=== PATIENT | male | born 1960 ===

== ENCOUNTER 2017-06-05 20:44 | Inpatient (IN) | payer OTHER ==
--- NOTE | 2017-06-05 20:56 | ED PDOC ---
Arrival/HPI - General Time Seen by Provider: 06/05/17 20:47 Historian: Patient - History of Present Illness Narrative History of Present Illness (Text): 06/05/17 20:53 Alex Villegas is a 56 year old male smoker who presents to the Emergency department complaining of shortness of breath. Patient reports he has been experiencing minimally productive cough whitish sputum for the past 3 days and developed shortness of breath yesterday, which worsened tonight. Patient also reports occassional associated chest discomfort. Patient denies any leg pain, chills, nausea, vomiting, diarrhea, back pain, neck pain, headache, dizziness, or any other complaints. Time/Duration: < week (3 days) Symptom Onset: Gradual Symptom Course: Unchanged Activities at Onset: Light Context: Home Past Medical History - Provider Review Nursing Documentation Reviewed: Yes Family/Social History - Physician Review Nursing Documentation Reviewed: Yes Family/Social History: Unknown Family HX Allergies/Home Meds Allergies/Adverse Reactions: Allergies No Known Allergies Allergy (Unverified 06/05/17 20:56) Review of Systems - Physician Review All systems were reviewed & negative as marked: Yes - Review of Systems Constitutional: Fevers Eyes: Normal ENT: Normal Respiratory: SOB, Cough, Sputum Cardiovascular: Chest Pain Gastrointestinal: Normal. absent: Abdominal Pain, Diarrhea, Nausea, Vomiting Genitourinary Male: Normal. absent: Dysuria, Frequency, Hematuria, Urinary Output Changes Musculoskeletal: Normal. absent: Back Pain, Neck Pain Skin: Normal. absent: Rash Neurological: Normal. absent: Headache, Dizziness Endocrine: Normal Hemo/Lymphatic: Normal Psychiatric: Normal Physical Exam Vital Signs Reviewed: Yes Vital Signs Temp Pulse Resp BP Pulse Ox 06/06/17 01:29 91 H 18 177/113 H 99 06/05/17 23:42 90 18 169/120 H 96 06/05/17 22:14 109 H 216/151 H 06/05/17 22:09 102 H 19 208/152 H 100 06/05/17 21:27 113 H 208/140 H 06/05/17 20:44 97.6 F 113 H 19 208/140 H 95 Temperature: Afebrile Blood Pressure: Hypertensive Pulse: Tachycardic Respiratory Rate: Normal Appearance: Positive for: Well-Appearing, Non-Toxic, Comfortable Pain Distress: None Mental Status: Positive for: Alert and Oriented X 3 - Systems Exam Head: Present: Atraumatic, Normocephalic Pupils: Present: PERRL Extroacular Muscles: Present: EOMI Conjunctiva: Present: Normal Mouth: Present: Moist Mucous Membranes Neck: Present: Normal Range of Motion Respiratory/Chest: Present: Clear to Auscultation, Good Air Exchange. No: Respiratory Distress, Accessory Muscle Use Cardiovascular: Present: Regular Rate and Rhythm, Normal S1, S2, Tachycardic. No: Murmurs Abdomen: Present: Normal Bowel Sounds. No: Tenderness, Distention, Peritoneal Signs Back: Present: Normal Inspection Upper Extremity: Present: Normal Inspection. No: Cyanosis, Edema Lower Extremity: Present: Normal Inspection. No: Edema Neurological: Present: GCS=15, CN II-XII Intact, Speech Normal Skin: Present: Warm, Dry, Normal Color. No: Rashes Psychiatric: Present: Alert, Oriented x 3, Normal Insight, Normal Concentration Medical Decision Making ED Course and Treatment: 06/05/17 20:53 Impression: 56 year old male complaining of productive cough with sputum, shortness of breath, chest discomfort. Plan: -- EKG -- Chest X-ray -- Labs, cardiac enzymes, BNP, D-dimer -- Catapres -- Reassess and disposition Progress Notes: Reviewed EKG, sinus tachycardia at 112 bpm. LAD. LVH. 06/05/17 22:18 Chest X-ray reviewed, shows no acute processes. 06/05/17 23:54 CTA Chest shows: LIMITATIONS: Mild to moderate respiratory motion artifact. PULMONARY ARTERIES: Nonocclusive filling defect in the right lower lobe pulmonary artery, images 112-116 of series 2. Occlusive filling defects in multiple segmental and subsegmental branches of the right lower lobe pulmonary artery, compatible with acute pulmonary emboli, images 148-165 of series 2. Main pulmonary artery segment is enlarged, suggestive of pulmonary hypertension. No evidence of clot in the large large central pulmonary arteries. AORTA: Exam is nondiagnostic for the detection of aortic dissection because of suboptimal enhancement of the aorta. LUNGS: Findings suspicious for mild pulmonary vascular congestion. There is mild , smooth interlobular septal thickening in the lungs bilaterally, mainly at the lung periphery. No evidence of significant focal consolidation/infiltrate in the lungs PLEURAL SPACE: Bilateral pleural effusions, small to moderate in size, symmetric in appearance. HEART: Heart appears moderately to markedly enlarged. BONES/JOINTS: No acute bony abnormality identified. SOFT TISSUES: No acute abnormality of the visualized soft tissues seen. LYMPH NODES: No evidence of diffuse lymphadenopathy. PANCREAS: Mild stranding of the fat adjacent to the pancreatic tail. Small amount of nearby fluid in the left retroperitoneal space. Findings are suspicious for mild acute pancreatitis, involving the pancreatic tail. No peripancreatic fluid collections seen. ADRENALS: 2.3 cm left adrenal lesion. This has features suggestive of a benign lesion, but it is indeterminate on this exam. Recommend follow-up abdominal CT or MR in 12 months. Alternatively, if there is a history of malignancy, consider further evaluation with PET, unenhanced abdominal CT or MR. KIDNEYS AND URETERS: Low density lesion in the left kidney, most likely a cyst, measuring 3.8 cm. Nonobstructing left renal stone. INTRAPERITONEAL SPACE: Small amount of abdominal free fluid. IMPRESSION: - RIGHT LOWER LOBE PULMONARY EMBOLI, PRIMARILY INVOLVING MULTIPLE SEGMENTAL AND SUBSEGMENTAL BRANCHES. - Findings suspicious for mild acute pancreatitis, involving the pancreatic tail. Recommend correlation with pancreatic enzyme values. - Bilateral pleural effusions and findings suspicious for mild pulmonary vascular congestion. - Small amount of abdominal free fluid. - Cardiomegaly. - Incidental adrenal lesion. See recommendations above. - See above for remaining findings. Heparin bolus and drip ordered. 06/05/17 23:[address] Bartlett, typist, who is aware and agrees to evaluate pt. residential construction instructor notified. 06/06/17 00:08 Case discussed with medical sales associate almond pan finisher, who is aware and agrees with plan. 06/06/17 00:[address] Rojas, who is aware and agrees with plan. Accepts pt in to her service. Pt will be admitted to ICU for pulmonary emboli. Requests consults with Dr. Blair and Dr. Gomez. 06/06/17 00:25 - Critical Care Critical Care Minutes: 30 minutes - Lab Interpretations Lab Results: 06/05/17 21:00 06/05/17 21:00 Lab Results 06/05/17 21:00: WBC 12.8 H, RBC 4.81, Hgb 14.1, Hct 41.2 L, MCV 85.7, MCH 29.3, MCHC 34.2, RDW 14.9 H, Plt Count 260, MPV 10.0 06/05/17 21:00: Sodium 140, Potassium 3.7, Chloride 102, Carbon Dioxide 22, Anion Gap 20, BUN 19, Creatinine 1.3, Est GFR ( Amer) > 60, Est GFR (Non- Af Amer) 57, Random Glucose 220 H, Calcium 10.4, Total Bilirubin 1.6 H, AST 57, ALT 90 H, Alkaline Phosphatase 97, Lactate Dehydrogenase 559, Total Creatine Kinase 179, Troponin I 0.07, Total Protein 7.3, Albumin 4.2, Globulin 3.1, Albumin/Globulin Ratio 1.3 06/05/17 21:00: PT 14.3 H, INR 1.25 H, APTT 25.7, D-Dimer, Quantitative 248 H I have reviewed the lab results: Yes - RAD Interpretation Radiology Orders: 06/05/17 21:13 CHEST PORTABLE [RAD] Stat 06/05/17 22:19 ANGIO CHEST PE PROTOCOL [CT] Stat Mold Maker Plastic Molds: ED Physician, Radiologist - EKG Interpretation Interpreted by ED Physician: Yes Type: 12 lead EKG - Medication Orders Current Medication Orders: Clonidine HCl (Catapres) 0.1 mg PO TID PRN PRN Reason: Systolic Blood Pressure Heparin Sodium/Sodium Chloride (Heparin 82830 Units/250ml 1/2 Normal Saline) 25 ,000 units in 250 mls @ 16.035 mls/hr IV .[id number] PRN; Protocol; 18 UNITS/KG/HR PRN Reason: ADJUST RATE PER PROTOCOL Last Admin: 06/06/17 00:39 Dose: 18 units/kg/hr, 16.035 mls/hr eMAR Start Stop Document 06/06/17 00:39 RD (Rec: 06/06/17 00:39 RD [id number]) Intravenous Solution Start Date 06/06/17 Start Time 00:39 Titration Intervention Document 06/06/17 00:39 RD (Rec: 06/06/17 00:39 RD [id number]) Titration Intake Waste Amount 0 Container Volume 250 Titration Dosing Titration Dose 18 IV Rate 16.035 Intake/Decrease Started Pantoprazole Sodium (Protonix Ec Tab) 40 mg PO 0600 DERRICK Discontinued Medications Clonidine HCl (Catapres) 0.2 mg PO STAT STA Stop: 06/05/17 21:14 Last Admin: 06/05/17 21:27 Dose: 0.2 mg MAR Pulse and Blood Pressure Document 06/05/17 21:27 RD (Rec: 06/05/17 21:27 RD [id number]) Pulse Pulse Rate (60-90 beats/min) 113 Blood Pressure Blood Pressure (100/60-150/90 mm Hg) 208/140 Heparin Sodium (Porcine) (Heparin) 6,880 units IV ONCE STA PRN Reason: Protocol Stop: 06/06/17 00:10 Last Admin: 06/06/17 00:19 Dose: 6,880 units eMAR Start Stop Document 06/06/17 00:19 RD (Rec: 06/06/17 00:21 RD [id number]) Intravenous Solution Start Date 06/06/17 Start Time 00:19 End Date 06/06/17 End time 00:21 Total Infusion Time 2 Metoprolol Tartrate (Lopressor) 5 mg IVP STAT STA Stop: 06/05/17 22:10 Last Admin: 06/05/17 22:14 Dose: 5 mg IVP Administration Document 06/05/17 22:14 RD (Rec: 06/05/17 22:14 RD [id number]) Charges for Administration # of IVP Administrations 1 MAR Pulse and Blood Pressure Document 06/05/17 22:14 RD (Rec: 06/05/17 22:14 RD [id number]) Pulse Pulse Rate (60-90 beats/min) 109 Blood Pressure Blood Pressure (100/60-150/90 mm Hg) 216/151 - Scribe Statement The provider has reviewed the documentation as recorded by the Veronicaibsoniya [place] All medical record entries made by the Veronicaibsoniya were at my direction and personally dictated by me. I have reviewed the chart and agree that the record accurately reflects my personal performance of the history, physical exam, medical decision making, and the department course for this patient. I have also personally directed, reviewed, and agree with the discharge instructions and disposition. Disposition/Present on Arrival - Present on Arrival Any Indicators Present on Arrival: No History of DVT/PE: No History of Uncontrolled Diabetes: No Urinary Catheter: No History of Decub. Ulcer: No History Surgical Site Infection Following: None - Disposition Have Diagnosis and Disposition been Completed?: Yes Diagnosis: Pulmonary emboli Disposition: HOSPITALIZED Disposition Time: 00:10 Patient Plan: Admission Patient Problems: Current Active Problems Problem Status Onset Pulmonary emboli Acute Condition: GUARDED
[2017-06-05 21:27] LABS: HEMOGLOBIN 14.1 g/dL (14.0-18.0); MEAN CELL VOLUME 85.7 fl (80.0-105.0); MEAN CORPUSCULAR HEMOGLOBIN 29.3 pg (25.0-35.0); MEAN CORPUSCULAR HGB CONC 34.2 g/dl (31.0-37.0); RBC 4.81 10^6/uL (3.5-6.1); RED CELL DISTRIBUTION WIDTH 14.9 % (11.5-14.5); WHITE BLOOD COUNT 12.8 10^3/ul (4.5-11.0)
[2017-06-05 21:36] LABS: ALB/GLOB RATIO 1.3 (1.1-1.8); ALBUMIN 4.2 g/dL (3.0-4.8); ALT/SGPT 90 U/L (7-56); AST/SGOT 57 U/L (17-59); BLOOD UREA NITROGEN 19 mg/dL (7-21); CALCIUM 10.4 mg/dL (8.4-10.5); GFR AFRICAN-AMERICAN > 60; GFR NON-AFRICAN AMERICAN 57
[2017-06-05 21:47] LABS: TROPONIN I 0.07 ng/mL
[2017-06-05 22:04] LABS: INR 1.25 (0.93-1.08); PROTHROMBIN TIME 14.3 SECONDS (9.4-12.5)
[2017-06-05 22:05] LABS: PARTIAL THROMBOPLASTIN TIME 25.7 Seconds (25.1-36.5)
[2017-06-05] MEDS ORDERED: Metoprolol 1 mg/ml Inj IVP STA (22:09)
[2017-06-05] MEDS ORDERED: Iohexol 350 MG/100 ML VIAL ONE (22:22)
--- NOTE | 2017-06-05 23:52 | CT ---
EXAM: CT Angiography Chest With Intravenous Contrast EXAM DATE/TIME: 06/05/2017 10:19 PM CLINICAL HISTORY: 56 years old, male; Signs and symptoms; Shortness of breath; Additional info: SOB TECHNIQUE: Axial computed tomographic angiography images of the chest with intravenous contrast using pulmonary embolism protocol. All CT scans at this facility use one or more dose reduction techniques, viz.: automated exposure control; ma/kV adjustment per patient size (including targeted exams where dose is matched to indication; i.e. head); or iterative reconstruction technique. MIP reconstructed images were created and reviewed. Coronal and sagittal reformatted images were created and reviewed. CONTRAST: 95 mL of omni 350 administered intravenously. COMPARISON: Recent chest radiographs dated 2017-06-05, 21:24 FINDINGS: LIMITATIONS: Mild to moderate respiratory motion artifact. PULMONARY ARTERIES: Nonocclusive filling defect in the right lower lobe pulmonary artery, images 112-116 of series 2. Occlusive filling defects in multiple segmental and subsegmental branches of the right lower lobe pulmonary artery, compatible with acute pulmonary emboli, images 148-165 of series 2. Main pulmonary artery segment is enlarged, suggestive of pulmonary hypertension. No evidence of clot in the large large central pulmonary arteries. AORTA: Exam is nondiagnostic for the detection of aortic dissection because of suboptimal enhancement of the aorta. LUNGS: Findings suspicious for mild pulmonary vascular congestion. There is mild, smooth interlobular septal thickening in the lungs bilaterally, mainly at the lung periphery. No evidence of significant focal consolidation/infiltrate in the lungs. PLEURAL SPACE: Bilateral pleural effusions, small to moderate in size, symmetric in appearance. HEART: Heart appears moderately to markedly enlarged. BONES/JOINTS: No acute bony abnormality identified. SOFT TISSUES: No acute abnormality of the visualized soft tissues seen. LYMPH NODES: No evidence of diffuse lymphadenopathy. PANCREAS: Mild stranding of the fat adjacent to the pancreatic tail. Small amount of nearby fluid in the left retroperitoneal space. Findings are suspicious for mild acute pancreatitis, involving the pancreatic tail. No peripancreatic fluid collections seen. ADRENALS: 2.3 cm left adrenal lesion. This has features suggestive of a benign lesion, but it is indeterminate on this exam. Recommend follow-up abdominal CT or MR in 12 months. Alternatively, if there is a history of malignancy, consider further evaluation with PET, unenhanced abdominal CT or MR. KIDNEYS AND URETERS: Low density lesion in the left kidney, most likely a cyst, measuring 3.8 cm. Nonobstructing left renal stone. INTRAPERITONEAL SPACE: Small amount of abdominal free fluid. IMPRESSION: - RIGHT LOWER LOBE PULMONARY EMBOLI, PRIMARILY INVOLVING MULTIPLE SEGMENTAL AND SUBSEGMENTAL BRANCHES. - Findings suspicious for mild acute pancreatitis, involving the pancreatic tail. Recommend correlation with pancreatic enzyme values. - Bilateral pleural effusions and findings suspicious for mild pulmonary vascular congestion. - Small amount of abdominal free fluid. - Cardiomegaly. - Incidental adrenal lesion. See recommendations above. - See above for remaining findings.
[2017-06-06] MEDS ORDERED: Heparin25000 units/250ml 1/2NS 25,000 UNITS/250 ML BAG IV PRN (00:05)
[2017-06-06 00:08] VITALS: BMI 29.0
--- NOTE | 2017-06-06 00:30 | CP.PCM.CON ---
History of Present Illness - History of Present Illness History of Present Illness: ICU consult note: 56M with pmh of smoker who presents to the Emergency department complaining of shortness of breath. States that he travelled to [place] 2 weeks ago and since than he has been having a cough that has been getting progressively worse. He states that he brings up clear / whitish phlegm. Now for the past few days he has developed shortness of breath that has become progressively worse. He complains of some chest tightness but denies any chest pain. He also complains of some subjective fevers yesterday. He denies any period of prolong immobility other than going to [place] 2 weeks ago. He states that he is generally very active person. he denies any headache, dizziness, chills, chest pain, abd pain, n/v/d. 12 Point ROS was performed neg other than stated above PMH: denies PSH: denies ALL: NKA SH: admits to smoking a few cig per day for 15 years; denies any drinking; admits to taking drugs when he was in [place] but doesn't recall what it was. FH: states that his mom may have had a blood clot but doesn't recall where Review of Systems - Review of Systems All systems: reviewed and no additional remarkable complaints except Past Patient History - Past Social History Smoking Status: sometimes" - CARDIAC Hx Cardiac Disorders: No (denies) - PULMONARY Hx Respiratory Disorders: No (denies) - NEUROLOGICAL Hx Neurological Disorder: No (denies) - HEENT Hx HEENT Problems: No (denies) - RENAL Hx Chronic Kidney Disease: No (denies) - ENDOCRINE/METABOLIC Hx Endocrine Disorders: No (denies) - HEMATOLOGICAL/ONCOLOGICAL Hx Blood Disorders: No (denies) - INTEGUMENTARY Hx Dermatological Problems: No (denies) - MUSCULOSKELETAL/RHEUMATOLOGICAL Hx Musculoskeletal Disorders: No (denies) - GASTROINTESTINAL Hx Gastrointestinal Disorders: No (denies) - GENITOURINARY/GYNECOLOGICAL Hx Genitourinary Disorders: No (denies) - PSYCHIATRIC Hx Psychophysiologic Disorder: No (denies) Hx Substance Use: No - SURGICAL HISTORY Hx Surgeries: No (denies) - ANESTHESIA Hx Anesthesia: No Meds Allergies/Adverse Reactions: Allergies Allergy/AdvReac Type Severity Reaction Status Date / Time No Known Allergies Allergy Unverified 06/05/17 20:56 - Medications Medications: Current Medications Heparin Sodium/Sodium Chloride (Heparin 39141 Units/250ml 1/2 Normal Saline) 25 ,000 units in 250 mls @ 16.035 mls/hr IV .[id number] PRN; Protocol; 18 UNITS/KG/HR PRN Reason: ADJUST RATE PER PROTOCOL Physical Exam - Constitutional Appears: No Acute Distress - Head Exam Head Exam: ATRAUMATIC, NORMOCEPHALIC - Eye Exam Eye Exam: EOMI, PERRL Pupil Exam: NORMAL ACCOMODATION - ENT Exam ENT Exam: Mucous Membranes Moist - Respiratory Exam Respiratory Exam: Clear to Auscultation Bilateral. absent: Rales, Wheezes - Cardiovascular Exam Cardiovascular Exam: REGULAR RHYTHM, +S1, +S2 - GI/Abdominal Exam GI & Abdominal Exam: Normal Bowel Sounds, Soft. absent: Distended, Tenderness - Extremities Exam Extremities exam: Negative for: calf tenderness, pedal edema - Neurological Exam Neurological exam: Alert, Oriented x3 - Psychiatric Exam Psychiatric exam: Normal Affect, Normal Mood - Skin Skin Exam: Dry, Intact, Warm Results - Vital Signs Recent Vital Signs: Last Vital Signs Temp 97.6 F 06/05/17 20:44 Pulse 90 06/05/17 23:42 Resp 18 06/05/17 23:42 BP 169/120 H 06/05/17 23:42 Pulse Ox 96 06/05/17 23:42 - Labs Result Diagrams: 06/05/17 21:00 06/05/17 21:00 Labs: Laboratory Results - last 24 hr 06/05/17 06/05/17 06/05/17 21:00 21:00 21:00 WBC 12.8 H RBC 4.81 Hgb 14.1 Hct 41.2 L MCV 85.7 MCH 29.3 MCHC 34.2 RDW 14.9 H Plt Count 260 MPV 10.0 PT 14.3 H INR 1.25 H APTT 25.7 D-Dimer, Quantitative 248 H Sodium 140 Potassium 3.7 Chloride 102 Carbon Dioxide 22 Anion Gap 20 BUN 19 Creatinine 1.3 Est GFR ( Amer) > 60 Est GFR (Non-Af Amer) 57 Random Glucose 220 H Calcium 10.4 Total Bilirubin 1.6 H AST 57 ALT 90 H Alkaline Phosphatase 97 Lactate Dehydrogenase 559 Total Creatine Kinase 179 Troponin I 0.07 Total Protein 7.3 Albumin 4.2 Globulin 3.1 Albumin/Globulin Ratio 1.3 Assessment & Plan - Assessment and Plan (Free Text) Assessment: 56M with pmh of smoker who presents to the Emergency department complaining of shortness of breath 2/2 RLL PE currently on heparin drip. Neuro: - Stable - AAO x 3 Pulm: - Currently hemodynamically stable - Elevated D dimer - CT angio showing RLL PE - Cont heparin drip - Pulm consulted for recs - 2 L NC as needed - Daily labs CV: - hemodynamically stable - Clonidine .1 TID PRN for HTN - Maintain MAP > 65 - Echo ordered GI: - Protonix for ppx Renal: - Replete electrolytes as needed Endo: - maintain blood glucose of 140-180 Heme: - Cont heparin drip - Consider heme consult - Monitor H/H - Daily PTT Will monitor patient in the ICU for close monitoring Case and plan was reviewed and discussed in detail with Dr Bartlett.
[2017-06-06] MEDS: Heparin 25,000units in 1/2NS /250 ML BAG IV PRN (00:39)
[2017-06-06] MEDS: Pantoprazole 40 mg EC Tab PO SCH (05:27)
[2017-06-06 06:59] LABS: BASO # 0.04 K/mm3 (0.0-2.0); BASO % 0.4 % (0.0-3.0); EOS # 0.1 (0.0-0.7); EOS % 0.9 % (1.5-5.0); GRAN # 7.75 (1.4-6.5); GRAN % 69.2 % (50.0-68.0); HEMOGLOBIN 13.8 g/dL (14.0-18.0); LYMPH # 2.5 (1.2-3.4); LYMPH % 22.6 % (22.0-35.0); MEAN CELL VOLUME 85.5 fl (80.0-105.0); MEAN CORPUSCULAR HGB CONC 33.9 g/dl (31.0-37.0); MEAN PLATELET VOLUME 9.3 fl (7.0-11.0); MONO # 0.8 (0.1-0.6); MONO % 6.9 % (1.0-6.0); RBC 4.76 10^6/uL (3.5-6.1); WHITE BLOOD COUNT 11.2 10^3/ul (4.5-11.0)
[2017-06-06 07:14] LABS: ALB/GLOB RATIO 1.3 (1.1-1.8); ALT/SGPT 97 U/L (7-56); AST/SGOT 54 U/L (17-59); BLOOD UREA NITROGEN 17 mg/dL (7-21); CALCIUM 10.5 mg/dL (8.4-10.5); GFR AFRICAN-AMERICAN > 60; GFR NON-AFRICAN AMERICAN > 60; HDL CHOLESTEROL 35 mg/dL (29-60); LIPASE 216 U/L (23-300)
[2017-06-06 07:22] LABS: LDL CHOLESTEROL 91 mg/dL (0-129); TROPONIN I 0.07 ng/mL
[2017-06-06] MEDS ORDERED: Insulin Lispro (humaLOG) MEDIUM Coverage SC SCH (08:00)
--- NOTE | 2017-06-06 08:24 | RAD ---
HISTORY: sob COMPARISON: No prior. FINDINGS: LUNGS: No active pulmonary disease. PLEURA: No significant pleural effusion identified, no pneumothorax apparent. CARDIOVASCULAR: Moderate cardiomegaly. Mild vascular congestion OSSEOUS STRUCTURES: No significant abnormalities. VISUALIZED UPPER ABDOMEN: Normal. OTHER FINDINGS: None. IMPRESSION: Moderate cardiomegaly with mild vascular congestion
[2017-06-06 08:49] LABS: BARBITURATES, UR NEGATIVE (NEGATIVE); BENZODIAZEPINES, UR NEGATIVE (NEGATIVE); OPIATES, UR NEGATIVE (NEGATIVE); PHENCYCLIDINE, UR NEGATIVE (NEGATIVE)
--- NOTE | 2017-06-06 09:44 | US ---
HISTORY: Leg pain and swelling. Evaluate for DVT PHYSICIAN(S): Tyrel Hollis MD. TECHNIQUE: Duplex sonography and color-flow Doppler with graded compression were used to evaluate the deep venous systems of both lower extremities. FINDINGS: The visualized deep venous systems of both lower extremities are sonographically normal and compressible. Normal wave forms and augmentation are seen. There is no sonographic evidence for deep venous thrombosis in the visualized segments of both lower extremities. IMPRESSION: No sonographic evidence for deep venous thrombosis in the visualized segments of both lower extremities.
--- NOTE | 2017-06-06 11:22 | CP.CCUPN ---
<Paige Tucker - Last Filed: 06/06/17 11:35> CCU Subjective - Physician Review Subjective (Free Text): 06/06/17 08:20 Patient is seen and examined at bedside. He is feeling much better from yesterday. Admits to congestion in the chest. Denies chest pain, heart palpitations, nausea, vomiting, diarrhea, constipation, and numbness and tingling in his fingers and toes. Critical Care Time Spent (in minutes): 45 CCU Objective - Vital Signs / Intake & Output Vital Signs (Last 4 hours): Vital Signs Pulse Resp BP Pulse Ox 06/06/17 08:50 97 H 97 06/06/17 08:45 90 178/127 H 06/06/17 08:40 90 23 98 06/06/17 08:39 91 H 23 178/127 H 97 06/06/17 08:30 90 24 98 06/06/17 08:20 94 H 25 H 100 06/06/17 08:10 87 19 99 06/06/17 08:00 89 20 172/123 H 97 06/06/17 07:50 90 19 98 06/06/17 07:40 91 H 44 H 97 06/06/17 07:39 92 H 21 165/119 H 97 06/06/17 07:30 89 25 H 96 Intake and Output (Last 8hrs): Intake & Output 06/05/17 06/06/17 06/06/17 22:59 06:59 14:59 Intake Total 640 Balance 640 Weight 199 lb 9.6 oz Intake: IV 80 Right Hand 80 Oral 560 Tube Feeding 0 TPN/PPN 0 Blood Product 0 Lipid 0 Albumin 0 Other 0 - Physical Exam Head: Positive for: Atraumatic, Normocephalic Pupils: Positive for: PERRL Extroacular Muscles: Positive for: EOMI Conjunctiva: Positive for: Normal Mouth: Positive for: Moist Mucous Membranes Neck: Positive for: Normal Range of Motion Respiratory/Chest: Positive for: Clear to Auscultation, Good Air Exchange. Negative for: Respiratory Distress, Accessory Muscle Use Cardiovascular: Positive for: Regular Rate and Rhythm, Normal S1, S2. Negative for: Murmurs, Tachycardic, Bradycardic Abdomen: Positive for: Tenderness (epigastric.), Normal Bowel Sounds. Negative for: Distention, Peritoneal Signs Back: Positive for: Normal Inspection Upper Extremity: Positive for: Normal Inspection. Negative for: Cyanosis, Edema Lower Extremity: Positive for: Normal Inspection. Negative for: Edema Neurological: Positive for: GCS=15, CN II-XII Intact, Speech Normal Skin: Positive for: Warm, Dry, Normal Color. Negative for: Rashes Psychiatric: Positive for: Alert, Oriented x 3, Normal Insight, Normal Concentration - Medications Active Medications: Active Medications Generic Name Dose Route Start Last Admin Trade Name Freq PRN Reason Stop Dose Admin Hydralazine HCl 10 mg 06/06/17 02:14 06/06/17 08:45 Apresoline IVP 10 mg Q6 PRN Administration Systolic Blood Pressure Heparin Sodium/Sodium Chloride 25,000 units in 250 mls @ 16.035 mls/hr 00:11 06/06/17 00:39 Heparin 81316 Units/250ml 1/2 Normal Saline IV 18 units/kg/hr .[id number] PRN 16.035 mls/hr ADJUST RATE PER PROTOCOL Administration Protocol 18 UNITS/KG/HR Insulin Human Lispro 0 units 06/06/17 11:30 Humalog Med SC ACHS [facility] Protocol Losartan Potassium 50 mg 06/06/17 10:00 06/06/17 08:45 Cozaar PO 50 mg DAILY DERRICK Administration Pantoprazole Sodium 40 mg 06/06/17 06:00 06/06/17 05:27 Protonix Ec Tab PO 40 mg 0600 [facility] Administration - Patient Studies Lab Studies: Lab Studies 06/06/17 06/06/17 06/06/17 Range/Units 08:53 08:18 06:40 WBC (4.5-11.0) 10^3/ul RBC (3.5-6.1) 10^6/uL Hgb (14.0-18.0) g/dL Hct (42.0-52.0) % MCV (80.0-105.0) fl MCH (25.0-35.0) pg MCHC (31.0-37.0) g/dl RDW (11.5-14.5) % Plt Count (120.0-450.0) 10^3/uL MPV (7.0-11.0) fl Gran % (50.0-68.0) % Lymph % (Auto) (22.0-35.0) % [place] % (Auto) (1.0-6.0) % Eos % (Auto) (1.5-5.0) % Baso % (Auto) (0.0-3.0) % Gran # (1.4-6.5) Lymph # (Auto) (1.2-3.4) [place] # (Auto) (0.1-0.6) Eos # (Auto) (0.0-0.7) Baso # (Auto) (0.0-2.0) K/mm3 APTT 68.8 H (25.1-36.5) Seconds Sodium (132-148) mmol/L Potassium (3.6-5.0) mmol/L Chloride (98-107) mmol/L Carbon Dioxide (21-33) mmol/L Anion Gap (10-20) BUN (7-21) mg/dL Creatinine (0.8-1.5) mg/dl Est GFR ( Amer) Est GFR (Non-Af Amer) POC Glucose (mg/dL) 129 H (65-110) mg/dL Random Glucose (70-110) mg/dL Calcium (8.4-10.5) mg/dL Total Bilirubin (0.2-1.3) mg/dL AST (17-59) U/L ALT (7-56) U/L Alkaline Phosphatase (38-126) U/L Troponin I ng/mL NT-Pro-B Natriuret Pep (0-450) pg/mL Total Protein (5.8-8.3) g/dL Albumin (3.0-4.8) g/dL Globulin gm/dL Albumin/Globulin Ratio (1.1-1.8) Triglycerides (35-160) mg/dL Cholesterol (130-200) mg/dL LDL Cholesterol Direct (0-129) mg/dL HDL Cholesterol (29-60) mg/dL Lipase (23-300) U/L Urine Opiates Screen Negative (NEGATIVE) Urine Methadone Screen Negative (NEGATIVE) Ur Barbiturates Screen Negative (NEGATIVE) Ur Phencyclidine Scrn Negative (NEGATIVE) Ur Amphetamines Screen Negative (NEGATIVE) U Benzodiazepines Scrn Negative (NEGATIVE) U Oth Cocaine Metabols Negative (NEGATIVE) U Cannabinoids Screen Negative (NEGATIVE) 06/06/17 06/06/17 06/06/17 Range/Units 06:40 06:40 06:30 WBC 11.2 H (4.5-11.0) 10^3/ul RBC 4.76 (3.5-6.1) 10^6/uL Hgb 13.8 L (14.0-18.0) g/dL Hct 40.7 L (42.0-52.0) % MCV 85.5 (80.0-105.0) fl MCH 29.0 (25.0-35.0) pg MCHC 33.9 (31.0-37.0) g/dl RDW 15.0 H (11.5-14.5) % Plt Count 248 (120.0-450.0) 10^3/uL MPV 9.3 (7.0-11.0) fl Gran % 69.2 H (50.0-68.0) % Lymph % (Auto) 22.6 (22.0-35.0) % [place] % (Auto) 6.9 H (1.0-6.0) % Eos % (Auto) 0.9 L (1.5-5.0) % Baso % (Auto) 0.4 (0.0-3.0) % Gran # 7.75 H (1.4-6.5) Lymph # (Auto) 2.5 (1.2-3.4) [place] # (Auto) 0.8 H (0.1-0.6) Eos # (Auto) 0.1 (0.0-0.7) Baso # (Auto) 0.04 (0.0-2.0) K/mm3 APTT (25.1-36.5) Seconds Sodium 140 (132-148) mmol/L Potassium 4.4 (3.6-5.0) mmol/L Chloride 103 (98-107) mmol/L Carbon Dioxide 25 (21-33) mmol/L Anion Gap 16 (10-20) BUN 17 (7-21) mg/dL Creatinine 1.1 (0.8-1.5) mg/dl Est GFR ( Amer) > 60 Est GFR (Non-Af Amer) > 60 POC Glucose (mg/dL) (65-110) mg/dL Random Glucose 151 H (70-110) mg/dL Calcium 10.5 (8.4-10.5) mg/dL Total Bilirubin 1.4 H (0.2-1.3) mg/dL AST 54 (17-59) U/L ALT 97 H (7-56) U/L Alkaline Phosphatase 96 (38-126) U/L Troponin I 0.07 ng/mL NT-Pro-B Natriuret Pep 5480 H (0-450) pg/mL Total Protein 7.0 (5.8-8.3) g/dL Albumin 4.0 (3.0-4.8) g/dL Globulin 3.0 gm/dL Albumin/Globulin Ratio 1.3 (1.1-1.8) Triglycerides 109 (35-160) mg/dL Cholesterol 145 (130-200) mg/dL LDL Cholesterol Direct 91 (0-129) mg/dL HDL Cholesterol 35 (29-60) mg/dL Lipase 216 (23-300) U/L Urine Opiates Screen (NEGATIVE) Urine Methadone Screen (NEGATIVE) Ur Barbiturates Screen (NEGATIVE) Ur Phencyclidine Scrn (NEGATIVE) Ur Amphetamines Screen (NEGATIVE) U Benzodiazepines Scrn (NEGATIVE) U Oth Cocaine Metabols (NEGATIVE) U Cannabinoids Screen (NEGATIVE) Laboratory Results - last 24 hr 06/06/17 06/06/17 06/06/17 06:30 06:40 06:40 WBC 11.2 H RBC 4.76 Hgb 13.8 L Hct 40.7 L MCV 85.5 MCH 29.0 MCHC 33.9 RDW 15.0 H Plt Count 248 MPV 9.3 Gran % 69.2 H Lymph % (Auto) 22.6 [place] % (Auto) 6.9 H Eos % (Auto) 0.9 L Baso % (Auto) 0.4 Gran # 7.75 H Lymph # (Auto) 2.5 [place] # (Auto) 0.8 H Eos # (Auto) 0.1 Baso # (Auto) 0.04 APTT Sodium 140 Potassium 4.4 Chloride 103 Carbon Dioxide 25 Anion Gap 16 BUN 17 Creatinine 1.1 Est GFR ( Amer) > 60 Est GFR (Non-Af Amer) > 60 POC Glucose (mg/dL) Random Glucose 151 H Calcium 10.5 Total Bilirubin 1.4 H AST 54 ALT 97 H Alkaline Phosphatase 96 Troponin I 0.07 NT-Pro-B Natriuret Pep 5480 H Total Protein 7.0 Albumin 4.0 Globulin 3.0 Albumin/Globulin Ratio 1.3 Triglycerides 109 Cholesterol 145 LDL Cholesterol Direct 91 HDL Cholesterol 35 Lipase 216 Urine Opiates Screen Urine Methadone Screen Ur Barbiturates Screen Ur Phencyclidine Scrn Ur Amphetamines Screen U Benzodiazepines Scrn U Oth Cocaine Metabols U Cannabinoids Screen 06/06/17 06/06/17 06/06/17 06:40 08:18 08:53 WBC RBC Hgb Hct MCV MCH MCHC RDW Plt Count MPV Gran % Lymph % (Auto) [place] % (Auto) Eos % (Auto) Baso % (Auto) Gran # Lymph # (Auto) [place] # (Auto) Eos # (Auto) Baso # (Auto) APTT 68.8 H Sodium Potassium Chloride Carbon Dioxide Anion Gap BUN Creatinine Est GFR ( Amer) Est GFR (Non-Af Amer) POC Glucose (mg/dL) 129 H Random Glucose Calcium Total Bilirubin AST ALT Alkaline Phosphatase Troponin I NT-Pro-B Natriuret Pep Total Protein Albumin Globulin Albumin/Globulin Ratio Triglycerides Cholesterol LDL Cholesterol Direct HDL Cholesterol Lipase Urine Opiates Screen Negative Urine Methadone Screen Negative Ur Barbiturates Screen Negative Ur Phencyclidine Scrn Negative Ur Amphetamines Screen Negative U Benzodiazepines Scrn Negative U Oth Cocaine Metabols Negative U Cannabinoids Screen Negative Results Reviewed to Date: Yes Critical Care Progress Note - Prophylaxis GI Prophylaxis GI: PPI - Prophylaxis DVT Prophylaxis DVT: Heparin SQ - Nutrition Nutrition: Nutrition Category Date Time Status Heart Healthy Diet [DIET] Diets 06/06/17 Breakfast Ordered Assessment/Plan - Assessment and Plan (Free Text) Assessment: 56 y/o M with a PMH of smoking presented for dyspnea and cough admitted for a right lower lobe pulmonary embolism involving multiple segments and subsegmental branches. Patient was hemodynamically stable on presentation, was started on heparin drip. Plan: Neuro: alert, awake, and oriented, at baseline Pulm: Intermediate risk pulmonary embolism * Currently hemodynamically stable * Chest Angio CT with contrast showed right lower lobe PE, primarily involving multiple segmental and subsegmental branches, b/l pleural effusions and mild pulmonary vascular congestion * Continue Heparin gtt, consider NOACs. * B/l LE US showed no evidence for DVT in both lower extremities * Nasal cannula at 2L, as needed * Maintain SpO2 >92% * Pulmonary consulted Cardio: Hemodynamically stable now, was hypertensive and tachycardic on admission Hydralazine PRN and Losartan DERRICK for HTN MAP>65 Biomarkers: BNP: 5480, troponins neg x2, pending echo to evaluate for right sided heart strain. GI: Protonix for prophylaxis CTA chest showed possible pancreatitis of the tail Lipase within normal limits Hepatitis panel for elevated ALT Nephro: Replace electrolytes, as needed BUN/Cr stable, continue monitoring Maintain euvolemia Endo: Maintain euglycemia (140-180) Heme: on heparin drip, heme consulted. Monitor H/H, HD stable, no overt signs of bleeding Monitor PTT as per protocol ID: afebrile, no leukocytosis, low sepsis probability, will continue to monitor. DVT ppx: Heparin for PE. GI ppx: Protonix Dispo: Patient is stable. Transfer to tele. 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 - Date & Time Date: 06/06/17 Time: 10:40 <Judd Pina - Last Filed: 06/06/17 15:58> CCU Objective - Vital Signs / Intake & Output Intake and Output (Last 8hrs): Intake & Output 06/06/17 06/06/17 06/06/17 06:59 14:59 22:59 Intake Total 640 Balance 640 Weight 199 lb 9.6 oz Intake: IV 80 Right Hand 80 Oral 560 Tube Feeding 0 TPN/PPN 0 Blood Product 0 Lipid 0 Albumin 0 Other 0 - Medications Active Medications: Active Medications Generic Name Dose Route Start Last Admin Trade Name Freq PRN Reason Stop Dose Admin Hydralazine HCl 10 mg 06/06/17 02:14 06/06/17 08:45 Apresoline IVP 10 mg Q6 PRN Administration Systolic Blood Pressure Heparin Sodium/Sodium Chloride 25,000 units in 250 mls @ 16.035 mls/hr 00:11 06/06/17 00:39 Heparin 64537 Units/250ml 1/2 Normal Saline IV 18 units/kg/hr .[id number] PRN 16.035 mls/hr ADJUST RATE PER PROTOCOL Administration Protocol 18 UNITS/KG/HR Insulin Human Lispro 0 units 06/06/17 11:30 Humalog Med SC ACHS DERRICK Protocol Losartan Potassium 50 mg 06/06/17 10:00 06/06/17 08:45 Cozaar PO 50 mg DAILY DERRICK Administration Pantoprazole Sodium 40 mg 06/06/17 06:00 06/06/17 05:27 Protonix Ec Tab PO 40 mg 0600 [facility] Administration - Patient Studies Lab Studies: Lab Studies 06/06/17 06/06/17 06/06/17 Range/Units 12:10 12:10 12:10 WBC (4.5-11.0) 10^3/ul RBC (3.5-6.1) 10^6/uL Hgb (14.0-18.0) g/dL Hct (42.0-52.0) % MCV (80.0-105.0) fl MCH (25.0-35.0) pg MCHC (31.0-37.0) g/dl RDW (11.5-14.5) % Plt Count (120.0-450.0) 10^3/uL MPV (7.0-11.0) fl Gran % (50.0-68.0) % Lymph % (Auto) (22.0-35.0) % [place] % (Auto) (1.0-6.0) % Eos % (Auto) (1.5-5.0) % Baso % (Auto) (0.0-3.0) % Gran # (1.4-6.5) Lymph # (Auto) (1.2-3.4) [place] # (Auto) (0.1-0.6) Eos # (Auto) (0.0-0.7) Baso # (Auto) (0.0-2.0) K/mm3 APTT 59.9 H (25.1-36.5) Seconds Fibrinogen 592 H (200-393) mg/dl Fibrin Degrad Products <10 ug/ml (< 10 ug/mL) Sodium (132-148) mmol/L Potassium (3.6-5.0) mmol/L Chloride (98-107) mmol/L Carbon Dioxide (21-33) mmol/L Anion Gap (10-20) BUN (7-21) mg/dL Creatinine (0.8-1.5) mg/dl Est GFR ( Amer) Est GFR (Non-Af Amer) POC Glucose (mg/dL) (65-110) mg/dL Random Glucose (70-110) mg/dL Hemoglobin A1c (4.2-6.5) % Calcium (8.4-10.5) mg/dL Total Bilirubin (0.2-1.3) mg/dL AST (17-59) U/L ALT (7-56) U/L Alkaline Phosphatase (38-126) U/L Troponin I 0.07 ng/mL NT-Pro-B Natriuret Pep (0-450) pg/mL Total Protein (5.8-8.3) g/dL Albumin (3.0-4.8) g/dL Globulin gm/dL Albumin/Globulin Ratio (1.1-1.8) Triglycerides (35-160) mg/dL Cholesterol (130-200) mg/dL LDL Cholesterol Direct (0-129) mg/dL HDL Cholesterol (29-60) mg/dL Lipase (23-300) U/L Urine Opiates Screen (NEGATIVE) Urine Methadone Screen (NEGATIVE) Ur Barbiturates Screen (NEGATIVE) Ur Phencyclidine Scrn (NEGATIVE) Ur Amphetamines Screen (NEGATIVE) U Benzodiazepines Scrn (NEGATIVE) U Oth Cocaine Metabols (NEGATIVE) U Cannabinoids Screen (NEGATIVE) Hepatitis A IgM Ab (NEGATIVE) Hep Bs Antigen (NEGATIVE) Hep B Core IgM Ab (NEGATIVE) Hepatitis C Antibody (NEGATIVE) 06/06/17 06/06/17 06/06/17 Range/Units 11:59 08:53 08:18 WBC (4.5-11.0) 10^3/ul RBC (3.5-6.1) 10^6/uL Hgb (14.0-18.0) g/dL Hct (42.0-52.0) % MCV (80.0-105.0) fl MCH (25.0-35.0) pg MCHC (31.0-37.0) g/dl RDW (11.5-14.5) % Plt Count (120.0-450.0) 10^3/uL MPV (7.0-11.0) fl Gran % (50.0-68.0) % Lymph % (Auto) (22.0-35.0) % [place] % (Auto) (1.0-6.0) % Eos % (Auto) (1.5-5.0) % Baso % (Auto) (0.0-3.0) % Gran # (1.4-6.5) Lymph # (Auto) (1.2-3.4) [place] # (Auto) (0.1-0.6) Eos # (Auto) (0.0-0.7) Baso # (Auto) (0.0-2.0) K/mm3 APTT (25.1-36.5) Seconds Fibrinogen (200-393) mg/dl Fibrin Degrad Products (< 10 ug/mL) Sodium (132-148) mmol/L Potassium (3.6-5.0) mmol/L Chloride (98-107) mmol/L Carbon Dioxide (21-33) mmol/L Anion Gap (10-20) BUN (7-21) mg/dL Creatinine (0.8-1.5) mg/dl Est GFR ( Amer) Est GFR (Non-Af Amer) POC Glucose (mg/dL) 219 H 129 H (65-110) mg/dL Random Glucose (70-110) mg/dL Hemoglobin A1c (4.2-6.5) % Calcium (8.4-10.5) mg/dL Total Bilirubin (0.2-1.3) mg/dL AST (17-59) U/L ALT (7-56) U/L Alkaline Phosphatase (38-126) U/L Troponin I ng/mL NT-Pro-B Natriuret Pep (0-450) pg/mL Total Protein (5.8-8.3) g/dL Albumin (3.0-4.8) g/dL Globulin gm/dL Albumin/Globulin Ratio (1.1-1.8) Triglycerides (35-160) mg/dL Cholesterol (130-200) mg/dL LDL Cholesterol Direct (0-129) mg/dL HDL Cholesterol (29-60) mg/dL Lipase (23-300) U/L Urine Opiates Screen Negative (NEGATIVE) Urine Methadone Screen Negative (NEGATIVE) Ur Barbiturates Screen Negative (NEGATIVE) Ur Phencyclidine Scrn Negative (NEGATIVE) Ur Amphetamines Screen Negative (NEGATIVE) U Benzodiazepines Scrn Negative (NEGATIVE) U Oth Cocaine Metabols Negative (NEGATIVE) U Cannabinoids Screen Negative (NEGATIVE) Hepatitis A IgM Ab (NEGATIVE) Hep Bs Antigen (NEGATIVE) Hep B Core IgM Ab (NEGATIVE) Hepatitis C Antibody (NEGATIVE) 06/06/17 06/06/17 06/06/17 Range/Units 06:40 06:40 06:40 WBC (4.5-11.0) 10^3/ul RBC (3.5-6.1) 10^6/uL Hgb (14.0-18.0) g/dL Hct (42.0-52.0) % MCV (80.0-105.0) fl MCH (25.0-35.0) pg MCHC (31.0-37.0) g/dl RDW (11.5-14.5) % Plt Count (120.0-450.0) 10^3/uL MPV (7.0-11.0) fl Gran % (50.0-68.0) % Lymph % (Auto) (22.0-35.0) % [place] % (Auto) (1.0-6.0) % Eos % (Auto) (1.5-5.0) % Baso % (Auto) (0.0-3.0) % Gran # (1.4-6.5) Lymph # (Auto) (1.2-3.4) [place] # (Auto) (0.1-0.6) Eos # (Auto) (0.0-0.7) Baso # (Auto) (0.0-2.0) K/mm3 APTT 68.8 H (25.1-36.5) Seconds Fibrinogen (200-393) mg/dl Fibrin Degrad Products (< 10 ug/mL) Sodium 140 (132-148) mmol/L Potassium 4.4 (3.6-5.0) mmol/L Chloride 103 (98-107) mmol/L Carbon Dioxide 25 (21-33) mmol/L Anion Gap 16 (10-20) BUN 17 (7-21) mg/dL Creatinine 1.1 (0.8-1.5) mg/dl Est GFR ( Amer) > 60 Est GFR (Non-Af Amer) > 60 POC Glucose (mg/dL) (65-110) mg/dL Random Glucose 151 H (70-110) mg/dL Hemoglobin A1c 6.5 (4.2-6.5) % Calcium 10.5 (8.4-10.5) mg/dL Total Bilirubin 1.4 H (0.2-1.3) mg/dL AST 54 (17-59) U/L ALT 97 H (7-56) U/L Alkaline Phosphatase 96 (38-126) U/L Troponin I 0.07 ng/mL NT-Pro-B Natriuret Pep (0-450) pg/mL Total Protein 7.0 (5.8-8.3) g/dL Albumin 4.0 (3.0-4.8) g/dL Globulin 3.0 gm/dL Albumin/Globulin Ratio 1.3 (1.1-1.8) Triglycerides 109 (35-160) mg/dL Cholesterol 145 (130-200) mg/dL LDL Cholesterol Direct 91 (0-129) mg/dL HDL Cholesterol 35 (29-60) mg/dL Lipase 216 (23-300) U/L Urine Opiates Screen (NEGATIVE) Urine Methadone Screen (NEGATIVE) Ur Barbiturates Screen (NEGATIVE) Ur Phencyclidine Scrn (NEGATIVE) Ur Amphetamines Screen (NEGATIVE) U Benzodiazepines Scrn (NEGATIVE) U Oth Cocaine Metabols (NEGATIVE) U Cannabinoids Screen (NEGATIVE) Hepatitis A IgM Ab (NEGATIVE) Hep Bs Antigen (NEGATIVE) Hep B Core IgM Ab (NEGATIVE) Hepatitis C Antibody (NEGATIVE) 06/06/17 06/06/17 06/06/17 Range/Units 06:40 06:30 06:30 WBC 11.2 H (4.5-11.0) 10^3/ul RBC 4.76 (3.5-6.1) 10^6/uL Hgb 13.8 L (14.0-18.0) g/dL Hct 40.7 L (42.0-52.0) % MCV 85.5 (80.0-105.0) fl MCH 29.0 (25.0-35.0) pg MCHC 33.9 (31.0-37.0) g/dl RDW 15.0 H (11.5-14.5) % Plt Count 248 (120.0-450.0) 10^3/uL MPV 9.3 (7.0-11.0) fl Gran % 69.2 H (50.0-68.0) % Lymph % (Auto) 22.6 (22.0-35.0) % [place] % (Auto) 6.9 H (1.0-6.0) % Eos % (Auto) 0.9 L (1.5-5.0) % Baso % (Auto) 0.4 (0.0-3.0) % Gran # 7.75 H (1.4-6.5) Lymph # (Auto) 2.5 (1.2-3.4) [place] # (Auto) 0.8 H (0.1-0.6) Eos # (Auto) 0.1 (0.0-0.7) Baso # (Auto) 0.04 (0.0-2.0) K/mm3 APTT (25.1-36.5) Seconds Fibrinogen (200-393) mg/dl Fibrin Degrad Products (< 10 ug/mL) Sodium (132-148) mmol/L Potassium (3.6-5.0) mmol/L Chloride (98-107) mmol/L Carbon Dioxide (21-33) mmol/L Anion Gap (10-20) BUN (7-21) mg/dL Creatinine (0.8-1.5) mg/dl Est GFR ( Amer) Est GFR (Non-Af Amer) POC Glucose (mg/dL) (65-110) mg/dL Random Glucose (70-110) mg/dL Hemoglobin A1c (4.2-6.5) % Calcium (8.4-10.5) mg/dL Total Bilirubin (0.2-1.3) mg/dL AST (17-59) U/L ALT (7-56) U/L Alkaline Phosphatase (38-126) U/L Troponin I ng/mL NT-Pro-B Natriuret Pep 5480 H (0-450) pg/mL Total Protein (5.8-8.3) g/dL Albumin (3.0-4.8) g/dL Globulin gm/dL Albumin/Globulin Ratio (1.1-1.8) Triglycerides (35-160) mg/dL Cholesterol (130-200) mg/dL LDL Cholesterol Direct (0-129) mg/dL HDL Cholesterol (29-60) mg/dL Lipase (23-300) U/L Urine Opiates Screen (NEGATIVE) Urine Methadone Screen (NEGATIVE) Ur Barbiturates Screen (NEGATIVE) Ur Phencyclidine Scrn (NEGATIVE) Ur Amphetamines Screen (NEGATIVE) U Benzodiazepines Scrn (NEGATIVE) U Oth Cocaine Metabols (NEGATIVE) U Cannabinoids Screen (NEGATIVE) Hepatitis A IgM Ab Negative (NEGATIVE) Hep Bs Antigen Negative (NEGATIVE) Hep B Core IgM Ab Negative (NEGATIVE) Hepatitis C Antibody Negative (NEGATIVE) Laboratory Results - last 24 hr 06/06/17 06/06/17 06/06/17 06:30 06:30 06:40 WBC 11.2 H RBC 4.76 Hgb 13.8 L Hct 40.7 L MCV 85.5 MCH 29.0 MCHC 33.9 RDW 15.0 H Plt Count 248 MPV 9.3 Gran % 69.2 H Lymph % (Auto) 22.6 [place] % (Auto) 6.9 H Eos % (Auto) 0.9 L Baso % (Auto) 0.4 Gran # 7.75 H Lymph # (Auto) 2.5 [place] # (Auto) 0.8 H Eos # (Auto) 0.1 Baso # (Auto) 0.04 APTT Fibrinogen Fibrin Degrad Products Sodium Potassium Chloride Carbon Dioxide Anion Gap BUN Creatinine Est GFR ( Amer) Est GFR (Non-Af Amer) POC Glucose (mg/dL) Random Glucose Hemoglobin A1c Calcium Total Bilirubin AST ALT Alkaline Phosphatase Troponin I NT-Pro-B Natriuret Pep 5480 H Total Protein Albumin Globulin Albumin/Globulin Ratio Triglycerides Cholesterol LDL Cholesterol Direct HDL Cholesterol Lipase Urine Opiates Screen Urine Methadone Screen Ur Barbiturates Screen Ur Phencyclidine Scrn Ur Amphetamines Screen U Benzodiazepines Scrn U Oth Cocaine Metabols U Cannabinoids Screen Hepatitis A IgM Ab Negative Hep Bs Antigen Negative Hep B Core IgM Ab Negative Hepatitis C Antibody Negative 06/06/17 06/06/17 06/06/17 06:40 06:40 06:40 WBC RBC Hgb Hct MCV MCH MCHC RDW Plt Count MPV Gran % Lymph % (Auto) [place] % (Auto) Eos % (Auto) Baso % (Auto) Gran # Lymph # (Auto) [place] # (Auto) Eos # (Auto) Baso # (Auto) APTT 68.8 H Fibrinogen Fibrin Degrad Products Sodium 140 Potassium 4.4 Chloride 103 Carbon Dioxide 25 Anion Gap 16 BUN 17 Creatinine 1.1 Est GFR ( Amer) > 60 Est GFR (Non-Af Amer) > 60 POC Glucose (mg/dL) Random Glucose 151 H Hemoglobin A1c 6.5 Calcium 10.5 Total Bilirubin 1.4 H AST 54 ALT 97 H Alkaline Phosphatase 96 Troponin I 0.07 NT-Pro-B Natriuret Pep Total Protein 7.0 Albumin 4.0 Globulin 3.0 Albumin/Globulin Ratio 1.3 Triglycerides 109 Cholesterol 145 LDL Cholesterol Direct 91 HDL Cholesterol 35 Lipase 216 Urine Opiates Screen Urine Methadone Screen Ur Barbiturates Screen Ur Phencyclidine Scrn Ur Amphetamines Screen U Benzodiazepines Scrn U Oth Cocaine Metabols U Cannabinoids Screen Hepatitis A IgM Ab Hep Bs Antigen Hep B Core IgM Ab Hepatitis C Antibody 06/06/17 06/06/17 06/06/17 08:18 08:53 11:59 WBC RBC Hgb Hct MCV MCH MCHC RDW Plt Count MPV Gran % Lymph % (Auto) [place] % (Auto) Eos % (Auto) Baso % (Auto) Gran # Lymph # (Auto) [place] # (Auto) Eos # (Auto) Baso # (Auto) APTT Fibrinogen Fibrin Degrad Products Sodium Potassium Chloride Carbon Dioxide Anion Gap BUN Creatinine Est GFR ( Amer) Est GFR (Non-Af Amer) POC Glucose (mg/dL) 129 H 219 H Random Glucose Hemoglobin A1c Calcium Total Bilirubin AST ALT Alkaline Phosphatase Troponin I NT-Pro-B Natriuret Pep Total Protein Albumin Globulin Albumin/Globulin Ratio Triglycerides Cholesterol LDL Cholesterol Direct HDL Cholesterol Lipase Urine Opiates Screen Negative Urine Methadone Screen Negative Ur Barbiturates Screen Negative Ur Phencyclidine Scrn Negative Ur Amphetamines Screen Negative U Benzodiazepines Scrn Negative U Oth Cocaine Metabols Negative U Cannabinoids Screen Negative Hepatitis A IgM Ab Hep Bs Antigen Hep B Core IgM Ab Hepatitis C Antibody 06/06/17 06/06/17 06/06/17 12:10 12:10 12:10 WBC RBC Hgb Hct MCV MCH MCHC RDW Plt Count MPV Gran % Lymph % (Auto) [place] % (Auto) Eos % (Auto) Baso % (Auto) Gran # Lymph # (Auto) [place] # (Auto) Eos # (Auto) Baso # (Auto) APTT 59.9 H Fibrinogen 592 H Fibrin Degrad Products <10 ug/ml Sodium Potassium Chloride Carbon Dioxide Anion Gap BUN Creatinine Est GFR ( Amer) Est GFR (Non-Af Amer) POC Glucose (mg/dL) Random Glucose Hemoglobin A1c Calcium Total Bilirubin AST ALT Alkaline Phosphatase Troponin I 0.07 NT-Pro-B Natriuret Pep Total Protein Albumin Globulin Albumin/Globulin Ratio Triglycerides Cholesterol LDL Cholesterol Direct HDL Cholesterol Lipase Urine Opiates Screen Urine Methadone Screen Ur Barbiturates Screen Ur Phencyclidine Scrn Ur Amphetamines Screen U Benzodiazepines Scrn U Oth Cocaine Metabols U Cannabinoids Screen Hepatitis A IgM Ab Hep Bs Antigen Hep B Core IgM Ab Hepatitis C Antibody Critical Care Progress Note - Nutrition Nutrition: Nutrition Category Date Time Status Heart Healthy Diet [DIET] Diets 06/06/17 Breakfast Ordered Attending/Attestation - Attestation I have personally seen and examined this patient.: Yes I have fully participated in the care of the patient.: Yes I have reviewed all pertinent clinical information: Yes Notes (Text): 06/06/17 15:[address] Pina's note
[2017-06-06] MEDS: Insulin Lispro (humaLOG) MEDIUM Coverage SC SCH ×3 (11:30→22:10)
--- NOTE | 2017-06-06 11:32 | CP.PCM.CON ---
History of Present Illness - History of Present Illness History of Present Illness: Derik Tovar D.O. PGY-2, Internal Medicine Resident, Hem/Onc Consultation 56 year old male with a PMH of tobacco abuse who presents for 2 weeks of shortness of breath and cough, found to have a pulmonary embolus. Hematology consultation was requested. Patient was seen and examined at bedside in the ICU. Patient relates how his symptoms started when he got to [place]. Patient travels often and has never had any clots before. States mother may have had a clot at one time. No other pertinent history including no other long periods of immobilization or otherwise noted. PMH: as above PSH: denies SH: sporadic tobacco abuse for 15 years, denies EtOH, admits to some illicits FH: mother may have had a clot before Meds: reviewed Allergies: NKA Review of Systems - Review of Systems All systems: reviewed and no additional remarkable complaints except - Respiratory Respiratory: Cough, Dyspnea Past Patient History - Past Social History Smoking Status: Never Smoked - CARDIAC Hx Cardiac Disorders: No - PULMONARY Hx Respiratory Disorders: No - NEUROLOGICAL Hx Neurological Disorder: No - HEENT Hx HEENT Problems: No - RENAL Hx Chronic Kidney Disease: No - ENDOCRINE/METABOLIC Hx Endocrine Disorders: No - HEMATOLOGICAL/ONCOLOGICAL Hx Blood Disorders: No - INTEGUMENTARY Hx Dermatological Problems: No - MUSCULOSKELETAL/RHEUMATOLOGICAL Hx Musculoskeletal Disorders: No Hx Falls: No - GASTROINTESTINAL Hx Gastrointestinal Disorders: No - GENITOURINARY/GYNECOLOGICAL Hx Genitourinary Disorders: No - PSYCHIATRIC Hx Psychophysiologic Disorder: No - SURGICAL HISTORY Hx Surgeries: No - ANESTHESIA Hx Anesthesia: No Meds Allergies/Adverse Reactions: Allergies Allergy/AdvReac Type Severity Reaction Status Date / Time No Known Allergies Allergy Unverified 06/05/17 20:56 - Medications Medications: Current Medications Hydralazine HCl (Apresoline) 10 mg IVP Q6 PRN PRN Reason: Systolic Blood Pressure Last Admin: 06/06/17 08:45 Dose: 10 mg Heparin Sodium/Sodium Chloride (Heparin 04422 Units/250ml 1/2 Normal Saline) 25 ,000 units in 250 mls @ 16.035 mls/hr IV .[id number] PRN; Protocol; 18 UNITS/KG/HR PRN Reason: ADJUST RATE PER PROTOCOL Last Admin: 06/06/17 00:39 Dose: 18 units/kg/hr, 16.035 mls/hr Insulin Human Lispro (Humalog Med) 0 units SC ACHS [facility] PRN Reason: Protocol Losartan Potassium (Cozaar) 50 mg PO DAILY [facility] Last Admin: 06/06/17 08:45 Dose: 50 mg Pantoprazole Sodium (Protonix Ec Tab) 40 mg PO 0600 [facility] Last Admin: 06/06/17 05:27 Dose: 40 mg Physical Exam - Constitutional Appears: Non-toxic, No Acute Distress - Head Exam Head Exam: ATRAUMATIC, NORMOCEPHALIC - Eye Exam Eye Exam: EOMI, PERRL - ENT Exam ENT Exam: Mucous Membranes Moist, Normal Oropharynx - Neck Exam Neck exam: Positive for: Normal Inspection - Respiratory Exam Respiratory Exam: Clear to Auscultation Bilateral. absent: Rhonchi, Wheezes - Cardiovascular Exam Cardiovascular Exam: RRR, +S1, +S2 - GI/Abdominal Exam GI & Abdominal Exam: Normal Bowel Sounds, Soft. absent: Tenderness - Extremities Exam Extremities exam: Negative for: calf tenderness - Neurological Exam Neurological exam: Alert, Oriented x3 - Psychiatric Exam Psychiatric exam: Normal Affect, Normal Mood - Skin Skin Exam: Dry, Warm Results - Vital Signs Recent Vital Signs: Last Vital Signs Temp 97.5 F L 06/06/17 03:02 Pulse 97 H 06/06/17 08:50 Resp 23 06/06/17 08:40 BP 178/127 H 06/06/17 08:45 Pulse Ox 97 06/06/17 08:50 - Labs Result Diagrams: 06/06/17 06:40 06/06/17 06:40 Labs: Laboratory Results - last 24 hr 06/06/17 06/06/17 06/06/17 06:30 06:40 06:40 WBC 11.2 H RBC 4.76 Hgb 13.8 L Hct 40.7 L MCV 85.5 MCH 29.0 MCHC 33.9 RDW 15.0 H Plt Count 248 MPV 9.3 Gran % 69.2 H Lymph % (Auto) 22.6 Starke % (Auto) 6.9 H Eos % (Auto) 0.9 L Baso % (Auto) 0.4 Gran # 7.75 H Lymph # (Auto) 2.5 Starke # (Auto) 0.8 H Eos # (Auto) 0.1 Baso # (Auto) 0.04 APTT Sodium 140 Potassium 4.4 Chloride 103 Carbon Dioxide 25 Anion Gap 16 BUN 17 Creatinine 1.1 Est GFR ( Amer) > 60 Est GFR (Non-Af Amer) > 60 POC Glucose (mg/dL) Random Glucose 151 H Calcium 10.5 Total Bilirubin 1.4 H AST 54 ALT 97 H Alkaline Phosphatase 96 Troponin I 0.07 NT-Pro-B Natriuret Pep 5480 H Total Protein 7.0 Albumin 4.0 Globulin 3.0 Albumin/Globulin Ratio 1.3 Triglycerides 109 Cholesterol 145 LDL Cholesterol Direct 91 HDL Cholesterol 35 Lipase 216 Urine Opiates Screen Urine Methadone Screen Ur Barbiturates Screen Ur Phencyclidine Scrn Ur Amphetamines Screen U Benzodiazepines Scrn U Oth Cocaine Metabols U Cannabinoids Screen 06/06/17 06/06/17 06/06/17 06:40 08:18 08:53 WBC RBC Hgb Hct MCV MCH MCHC RDW Plt Count MPV Gran % Lymph % (Auto) Starke % (Auto) Eos % (Auto) Baso % (Auto) Gran # Lymph # (Auto) Starke # (Auto) Eos # (Auto) Baso # (Auto) APTT 68.8 H Sodium Potassium Chloride Carbon Dioxide Anion Gap BUN Creatinine Est GFR ( Amer) Est GFR (Non-Af Amer) POC Glucose (mg/dL) 129 H Random Glucose Calcium Total Bilirubin AST ALT Alkaline Phosphatase Troponin I NT-Pro-B Natriuret Pep Total Protein Albumin Globulin Albumin/Globulin Ratio Triglycerides Cholesterol LDL Cholesterol Direct HDL Cholesterol Lipase Urine Opiates Screen Negative Urine Methadone Screen Negative Ur Barbiturates Screen Negative Ur Phencyclidine Scrn Negative Ur Amphetamines Screen Negative U Benzodiazepines Scrn Negative U Oth Cocaine Metabols Negative U Cannabinoids Screen Negative Assessment & Plan - Assessment and Plan (Free Text) Assessment: 56 year old male with a PMH of tobacco abuse who presents for 2 weeks of shortness of breath and cough, found to have a pulmonary embolus. Hematology consultation was requested. Plan: Acute pulmonary embolism Tobacco abuse Discussed with patient his condition, the pathophysiology, and the natural progression Likely provoked event although flight to [place] not very long Hypercoagulability work up ordered and pending On heparin gtt continue at this time May transition to NOAC in the coming days Will follow Patient was seen and examined and case discussed at length with attending physician - Date & Time Date: 06/06/17 Time: 11:20
[2017-06-06 12:25] LABS: HEPATITIS B SURFACE AG Negative (NEGATIVE)
[2017-06-06 12:31] LABS: HEPATITIS A IGM NEGATIVE (NEGATIVE); HEPATITIS B CORE AB NEGATIVE (NEGATIVE)
[2017-06-06 12:40] LABS: PARTIAL THROMBOPLASTIN TIME 59.9 Seconds (25.1-36.5)
[2017-06-06 12:42] LABS: HEPATITIS C ANTIBODY NEGATIVE (NEGATIVE)
--- NOTE | 2017-06-06 12:56 | PN ---
DATE: 06/06/2017 SUBJECTIVE: The patient is a 56-year-old of gentleman without significant past medical history, who had 2 trips to [place] (three and a half hours plane flight) about 2 weeks ago, who presented at this time with acute onset of shortness of breath without any chest pain, fever, chills or sweats. Shortness of breath was pretty severe, which led to CT chest with IV contrast performed in [facility] ER. It revealed pulmonary embolism in the right pulmonary artery with some cardiomegaly and dilated right pulmonary artery to suggest pulmonary hypertension. The patient was emergently started on heparin drip. Today's PTT is 68. The patient reports that the shortness of breath subsided and he is feeling substantially better. He denies any swelling of his feet and legs, any cramps in the lower extremities. The patient never had the episodes before. The patient is a light smoker, but does not smoke everyday. PAST MEDICAL HISTORY: None. SOCIAL HISTORY: The patient is a light smoker, but does not smoke everyday. No alcohol or illicit drug abuse. FAMILY HISTORY: Noncontributory. ALLERGIES: NKDA. MEDICATIONS AT HOME: None. PHYSICAL EXAMINATION: VITAL SIGNS: Temperature 97.5, blood pressure 157/111, heart rate 94, respiratory rate 16, oxygen saturation 100% on nasal cannula. ENT: Head and neck atraumatic. LUNGS: Clear to auscultation bilaterally. HEART: Regular rate and rhythm. S1, S2 normal. ABDOMEN: Soft, nontender and nondistended. MUSCULOSKELETAL: No C/C/E. NEUROLOGIC: The patient moves all extremities spontaneously. SKIN: Moist. PSYCH: The patient is alert and oriented x3. LABORATORY DATA: Sodium 140, potassium 4.4, chloride 103, carbon dioxide 25, BUN 17, creatinine 1.1 down from 1.3, glucose 151, AST 54, ALT 97, bilirubin 1.4, troponin 0.07, lipase 216. WBC 11.2, hemoglobin 13.8, platelet count 248. PTT 68.8 (the patient is on heparin drip). CAT scan of the chest revealed right lower lobe pulmonary emboli primarily involving multiple segmental and subsegmental branches. Findings suspicious for mild acute pancreatitis involving the pancreatic tail. Recommend correlation with pancreatic enzyme values. Bilateral pleural effusions and findings suspicious for mild pulmonary vascular congestion. Small amount of abdominal free fluid, cardiomegaly, incidental adrenal lesions. ASSESSMENT AND PLAN: This is a 56-year-old gentleman, who presented with acute onset shortness of breath secondary to intermediate short term risk acute pulmonary embolism. At present time, the patient is on heparin drip. At some point, he will have to be switched to NOAC, which will be up to discretion of PMD. At present time , the patient is therapeutically anticoagulated with PT 68.8. His subjective symptoms substantially improved. Echocardiogram are pending. Meanwhile, his troponin is negative. It appears that the patient has a new diagnosis of hypertension and his blood glucose was found to be above 200 on the first reading, which may suggest new onset of DM type 2. These issues will be addressed by primary medical doctor. Meanwhile, the patient can be transferred to telemetry. I would continue target euvolemia, euglycemia, normothermia and oxygen saturation more than 90%. Continue with deep venous thrombosis/gastrointestinal prophylaxis. Discussed above with PMD ccm time 40 min Judd Pina MD DENISE
--- NOTE | 2017-06-06 17:49 | CARD ---
APPROVED REPORT EXAM: Two-dimensional and M-mode echocardiogram with Doppler and color Doppler. INDICATION Pulmonary Embolism 2D DIMENSIONS Left Atrium (2D)4.9 (1.6-4.0cm)IVSd1.3 (0.7-1.1cm) LVDd5.8 (3.9-5.9cm)PWd1.3 (0.7-1.1cm) LVDs5.2 (2.5-4.0cm)FS (%) 10.8 % LVEF (%)23.1 (>50%) M-Mode DIMENSIONS Aortic Root3.50 (2.2-3.7cm)Aortic Cusp Exc.1.60 (1.5-2.0cm) Aortic Valve AoV Peak Tuyztrqp775.0cm/Tim Peak GR.9mmHg Mitral Valve MV E Cmtbcrge908.0cm/sMV A Rboipfal40.9cm/sE/A ratio2.9 TDI Lateral E' Peak V4.68cm/sMedial E' Peak V3.61cm/sE/Lateral E'27.1 E/Medial E'35.2 Pulmonary Valve PV Peak Xlulhvaz73.5cm/sPV Peak Grad.1mmHg Tricuspid Valve TR Peak [id number]/sRAP CWJTSJVV54roKaDT Peak Gr.44mmHg [id number] LEFT VENTRICLE The Left Ventricle is borderline dilated. There is mild concentric left ventricular hypertrophy. The systolic function is severely impaired. There is global hypokinesis of the left ventricle. No left ventricle thrombus noted on this study. RIGHT VENTRICLE The right ventricle is borderline dilated. There is normal right ventricular wall thickness. RV Systolic function is moderately reduced. ATRIA The left atrium is moderately dilated. The right atrium is mildly dilated. AORTIC VALVE The aortic valve is mildly thickened. No aortic regurgitation is present. There is no aortic valvular stenosis. MITRAL VALVE The mitral valve is mildly thickened. Mitral regurgitation is mild to moderate. TRICUSPID VALVE There is mild tricuspid regurgitation. There is moderate pulmonary hypertension. PULMONIC VALVE There is mild pulmonic valvular regurgitation. GREAT VESSELS The aortic root is normal in size. The IVC was not visualized. <Conclusion> The Left Ventricle is borderline dilated. There is mild concentric left ventricular hypertrophy. The systolic function is severely impaired. There is global hypokinesis of the left ventricle. RV Systolic function is moderately reduced. Mitral regurgitation is mild to moderate. There is mild tricuspid regurgitation. There is moderate pulmonary hypertension.
--- NOTE | 2017-06-06 18:49 | US ---
PROCEDURE: Venous ultrasound bilateral iliac veins HISTORY: Evaluate for pelvic sonny PHYSICIAN(S): Tyrel Hollis MD. TECHNIQUE: FINDINGS: The exam is very limited. The visualized iliac veins bilaterally are patent. The internal iliac veins are not evaluated. IMPRESSION: Limited study. The visualized iliac veins are patent bilaterally. The internal iliac veins are not visualized
--- NOTE | 2017-06-06 19:10 | CARD ---
APPROVED REPORT EKG Measurement Heart [id number] [id number] <Conclusion> Sinus tachycardia Possible Left atrial enlargement Left axis deviation Left ventricular hypertrophy with repolarization abnormality Abnormal ECG
--- NOTE | 2017-06-07 04:49 | CON ---
DATE: 06/06/2017 PULMONARY CONSULT REFERRING PHYSICIAN: Ellie Rojas MD. REASON FOR CONSULTATION: Pulmonary embolism. HISTORY OF PRESENT ILLNESS: This is a 56-year-old gentleman without any significant past medical history, who is a smoker, recently traveled from [place], been having cough and shortness of breath, is progressively getting worse, also has some chest tightness, comes into emergency room. He had a CTA done, which showed pulmonary embolism. He was started on heparin. Hemodynamically he was stable. Presently sitting at the side of the bed in Intensive Care Unit. Family is at bedside. Feels much better. Admits to loud snoring at nighttime, daytime sleepy and tired. No nausea. No vomiting. No diarrhea. No leg pain or leg swelling. PAST MEDICAL HISTORY: No significant cardiopulmonary disease reported. ALLERGIES: NONE KNOWN. 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 Positive history of smoking. Denies any alcohol use. FAMILY HISTORY: No significant cardiopulmonary disease reported. MEDICATIONS: He is on hydralazine 10 mg q.6h. p.r.n., Cozaar 50 mg daily, also on IV heparin, Protonix 40 mg daily. REVIEW OF SYSTEMS: No headache, no rhinitis. Admit to loud snoring, daytime sleepy and tired, short of breath. No cough. No chest pain at present. No nausea. No vomiting. No diarrhea. No leg pain or leg swelling. PHYSICAL EXAMINATION: GENERAL: Sitting up, no acute distress. VITAL SIGNS: Temperature is 98, heart rate is 102, respiratory rate is 25, blood pressure 163/109, pulse ox 96% on 2 liters nasal cannula. HEENT: Moist mucous membrane. Crowded airway. Mallampati score is 4. NECK: Supple. No JVD. LUNGS: Has fair airflow with few crackles at the right base. HEART: S1 and S2. ABDOMEN: Soft and nontender. No organomegaly. EXTREMITIES: No edema. NEUROLOGIC: Awake and alert. Follows simple commands. LABORATORY DATA: Shows hemoglobin of 13.8, hematocrit 40.7, WBC 11.2, platelet is 248. INR 1.25. Last PTT of 60, fibrinogen 592, D-dimer on admission at 248. Sodium 140, potassium 4.4, chloride 103, bicarbonate 25, BUN 17, creatinine 1.1, glucose 151, calcium 10.5, total bilirubin 1.4, AST 54, ALT 97, alkaline phosphatase is 96. Albumin 4.0. Troponin less than 0.07. Drug screen is negative. Influenza A and B is negative. Hepatitis profile is unremarkable. CTA done in ER shows right lower lobe pulmonary embolism. There is also questionable mild acute pancreatitis, small bilateral pleural effusion, cardiomegaly. Also had a venous Doppler of lower extremity done with no evidence of DVT. Echocardiogram was done, which shows right ventricular systolic pressure is 54, left ventricle borderline dilated, mild concentric left ventricular hypertrophy, moderate pulmonary hypertension. IMPRESSION AND PLAN: Pulmonary embolism, uncontrolled hypertension, cardiomyopathy, pulmonary hypertension, diastolic dysfunction. Spoke to nursing staff. Spoke to family at the bedside. All the questions answered. Hematology consult has been called. Hypercoagulable workup is in progress. We will add Norvasc 10 mg daily. We will also increase losartan to 100 mg daily. May add metoprolol tartrate 25 mg twice a day. Will need attended sleep study upon discharge as an outpatient. Follow up labs in the morning. Thank you and we will follow with you. Garfield Blair MD
[2017-06-07] MEDS: Pantoprazole 40 mg EC Tab PO SCH (05:59)
[2017-06-07] MEDS: Insulin Lispro (humaLOG) MEDIUM Coverage SC SCH ×4 (08:06→23:54)
--- NOTE | 2017-06-07 11:25 | CP.PCM.PN ---
Subjective - Date & Time of Evaluation Date of Evaluation: 06/07/17 Time of Evaluation: 09:10 - Subjective Subjective: Derik Tovar D.O. PGY-2, Internal Medicine Resident, Hem/Onc Progress Note 56 year old male with a PMH of tobacco abuse who presents for 2 weeks of shortness of breath and cough, found to have a pulmonary embolus. Patient was seen and examined. No overnight events. No complaints at this time. Objective - Vital Signs/Intake and Output Vital Signs (last 24 hours): Temp Pulse Resp BP Pulse Ox 98.7 F 92 H 20 158/114 H 97 06/07/17 06:00 06/07/17 09:56 06/07/17 06:00 06/07/17 09:56 06/07/17 06:00 Intake and Output: 06/07/17 06/07/17 06:59 18:59 Intake Total 360 Balance 360 - Medications Medications: Current Medications Amlodipine Besylate (Norvasc) 10 mg PO DAILY [facility] Last Admin: 06/07/17 09:56 Dose: 10 mg Hydralazine HCl (Apresoline) 10 mg IVP Q6 PRN PRN Reason: Systolic Blood Pressure Last Admin: 06/06/17 20:40 Dose: 10 mg Heparin Sodium/Sodium Chloride (Heparin 86512 Units/250ml 1/2 Normal Saline) 25 ,000 units in 250 mls @ 16.035 mls/hr IV .[id number] PRN; Protocol; 18 UNITS/KG/HR PRN Reason: ADJUST RATE PER PROTOCOL Last Admin: 06/06/17 00:39 Dose: 18 units/kg/hr, 16.035 mls/hr Insulin Human Lispro (Humalog Med) 0 units SC ACHS [facility] PRN Reason: Protocol Last Admin: 06/07/17 08:06 Dose: Not Given Losartan Potassium (Cozaar) 50 mg PO DAILY [facility] Last Admin: 06/07/17 09:56 Dose: 50 mg Metoprolol Tartrate (Lopressor) 25 mg PO BID [facility] Last Admin: 06/07/17 09:56 Dose: 25 mg Pantoprazole Sodium (Protonix Ec Tab) 40 mg PO 0600 [facility] Last Admin: 06/07/17 05:59 Dose: 40 mg - Labs Labs: 06/06/17 06:40 06/06/17 06:40 PT 14.3 SECONDS (9.4-12.5) H 06/05/17 21:00 INR 1.25 (0.93-1.08) H 06/05/17 21:00 APTT 56.1 Seconds (25.1-36.5) H 06/07/17 06:30 - Constitutional Appears: Non-toxic, No Acute Distress - Head Exam Head Exam: ATRAUMATIC, NORMOCEPHALIC - Eye Exam Eye Exam: EOMI, PERRL - ENT Exam ENT Exam: Mucous Membranes Moist, Normal Oropharynx - Neck Exam Neck exam: Positive for: Normal Inspection - Respiratory Exam Respiratory Exam: Clear to Auscultation Bilateral. absent: Rhonchi, Wheezes - Cardiovascular Exam Cardiovascular Exam: RRR, +S1, +S2 - GI/Abdominal Exam GI & Abdominal Exam: Normal Bowel Sounds, Soft. absent: Tenderness - Extremities Exam Extremities exam: Negative for: calf tenderness - Neurological Exam Neurological exam: Alert, Oriented x3 - Psychiatric Exam Psychiatric exam: Normal Affect, Normal Mood - Skin Skin Exam: Dry, Warm Assessment and Plan - Assessment and Plan (Free Text) Assessment: 56 year old male with a PMH of tobacco abuse who presents for 2 weeks of shortness of breath and cough, found to have a pulmonary embolus. Hematology consultation was requested. Plan: Acute pulmonary embolism Tobacco abuse Hypercoagulability work up still pending On heparin gtt continue at this time Plan to transition to NOAC Encouraged tobacco cessation Patient was seen and examined and case discussed at length with attending physician
[2017-06-07 11:34] LABS: BASO # 0.04 K/mm3 (0.0-2.0); BASO % 0.4 % (0.0-3.0); EOS # 0.2 (0.0-0.7); EOS % 2.1 % (1.5-5.0); GRAN # 6.81 (1.4-6.5); GRAN % 66.5 % (50.0-68.0); HEMOGLOBIN 12.5 g/dL (14.0-18.0); LYMPH # 2.4 (1.2-3.4); LYMPH % 23.3 % (22.0-35.0); MEAN CELL VOLUME 87.6 fl (80.0-105.0); MEAN CORPUSCULAR HEMOGLOBIN 28.8 pg (25.0-35.0); MEAN CORPUSCULAR HGB CONC 32.9 g/dl (31.0-37.0); MEAN PLATELET VOLUME 10.2 fl (7.0-11.0); MONO # 0.8 (0.1-0.6); MONO % 7.7 % (1.0-6.0); RBC 4.34 10^6/uL (3.5-6.1); RED CELL DISTRIBUTION WIDTH 15.3 % (11.5-14.5); WHITE BLOOD COUNT 10.2 10^3/ul (4.5-11.0)
[2017-06-07] MEDS: Heparin 25,000units in 1/2NS /250 ML BAG IV PRN (14:43)
[2017-06-07 15:29] LABS: CARDIOLIPIN AB (IGA) <11 APL (<=11)
--- NOTE | 2017-06-07 17:28 | CP.PCM.PN ---
Subjective - Date & Time of Evaluation Date of Evaluation: 06/07/17 Time of Evaluation: 09:50 - Subjective Subjective: Chief Complaint: shortness of breath 56 yr male w/ history of heavy smoking seen in [facility] [place] for shortness of breath and chest discomfort. Pt was found to have acute pulmonary emboli of R lower lobe on CT of chest. Today, seen at bedside with no complaints. Denies any shortness of breath, chest pain, headache, fever, chills, diarrhea, constipation, paraesthesias, or urinary changes. Objective - Vital Signs/Intake and Output Vital Signs (last 24 hours): Temp Pulse Resp BP Pulse Ox 98.2 F 83 20 156/115 H 97 06/07/17 14:18 06/07/17 17:17 06/07/17 14:18 06/07/17 17:17 06/07/17 06:00 Intake and Output: 06/07/17 06/07/17 06:59 18:59 Intake Total 360 Balance 360 - Medications Medications: Current Medications Amlodipine Besylate (Norvasc) 10 mg PO DAILY [facility] Last Admin: 06/07/17 09:56 Dose: 10 mg Hydralazine HCl (Apresoline) 10 mg IVP Q6 PRN PRN Reason: Systolic Blood Pressure Last Admin: 06/06/17 20:40 Dose: 10 mg Heparin Sodium/Sodium Chloride (Heparin 09891 Units/250ml 1/2 Normal Saline) 25 ,000 units in 250 mls @ 16.035 mls/hr IV .[id number] PRN; Protocol; 18 UNITS/KG/HR PRN Reason: ADJUST RATE PER PROTOCOL Last Admin: 06/07/17 14:43 Dose: 18 units/kg/hr, 16.035 mls/hr Insulin Human Lispro (Humalog Med) 0 units SC ACHS [facility] PRN Reason: Protocol Last Admin: 06/07/17 17:09 Dose: Not Given Losartan Potassium (Cozaar) 50 mg PO DAILY [facility] Last Admin: 06/07/17 09:56 Dose: 50 mg Metoprolol Tartrate (Lopressor) 25 mg PO BID [facility] Last Admin: 06/07/17 17:17 Dose: 25 mg Pantoprazole Sodium (Protonix Ec Tab) 40 mg PO 0600 [facility] Last Admin: 06/07/17 05:59 Dose: 40 mg - Labs Labs: 06/07/17 11:20 06/06/17 06:40 PT 14.3 SECONDS (9.4-12.5) H 06/05/17 21:00 INR 1.25 (0.93-1.08) H 06/05/17 21:00 APTT 56.1 Seconds (25.1-36.5) H 06/07/17 06:30 - Constitutional Appears: Well - Head Exam Head Exam: ATRAUMATIC, NORMAL INSPECTION, NORMOCEPHALIC - Eye Exam Eye Exam: EOMI, Normal appearance, PERRL Pupil Exam: NORMAL ACCOMODATION, PERRL - ENT Exam ENT Exam: Mucous Membranes Moist, Normal Exam - Neck Exam Neck Exam: Full ROM, Normal Inspection. absent: Lymphadenopathy - Respiratory Exam Respiratory Exam: Clear to Ausculation Bilateral, NORMAL BREATHING PATTERN - Cardiovascular Exam Cardiovascular Exam: REGULAR RHYTHM, +S1, +S2. absent: Murmur - GI/Abdominal Exam GI & Abdominal Exam: Soft, Normal Bowel Sounds. absent: Tenderness - Extremities Exam Extremities Exam: Full ROM, Normal Capillary Refill, Normal Inspection. absent : Joint Swelling, Pedal Edema - Neurological Exam Neurological Exam: Alert, Awake, CN II-XII Intact, Normal Gait, Oriented x3 - Psychiatric Exam Psychiatric exam: Normal Affect, Normal Mood - Skin Skin Exam: Dry, Intact, Normal Color, Warm Assessment and Plan (1) Smoker Status: Acute (2) HTN (hypertension) Status: Acute (3) Pulmonary emboli Status: Acute (4) Anemia Status: Acute (5) Hyperglycemia Status: Acute (6) Newly diagnosed diabetes Status: Acute - Assessment and Plan (Free Text) Plan: Hypercoagulability workup in place. IV heparin drip. VTE/GI prophlyaxis. Consults: Pulmo - Dr. Blair [employer] - Dr. Shanks Reviewed: pelvis ultrasound = limited study doppler BLE = NEGATIVE CT chest = R lower lobe pulmonary emboli, primarily involving segmental subsegmental branches, findings suspicious for mild acute pancreatitis involving pancreatic tail, bilateral pleural effusion, mild pulmonary vascular congestion?, small amount abdominal free fluis, cardiomegaly, adrenal lesion CXR = moderate cardiomegaly w/ mild vascular congestion ECHO = systolic function severely impaired, mod pulmonary hypertension ECG = ABNORMAL, ST, possible L atrial enlargement, L axis deviation, L ventricular hypertrophy w/ repolarization abnormality
--- NOTE | 2017-06-07 23:51 | PN ---
DATE: 06/07/2017 PULMONARY PROGRESS NOTE REFERRING PHYSICIAN: Dr. Rojas. SUBJECTIVE: Patient is lying in the bed. Night was unremarkable. Feels okay. No headache, no rhinitis. No chest pain. No dysuria. No leg pain or leg swelling. OBJECTIVE: GENERAL: In no acute distress. VITAL SIGNS: Temperature is 98, heart rate 83, respiratory rate is 20, blood pressure is 156/115, pulse ox 97% on nasal cannula. HEENT: Moist mucous membrane. Crowded airway. Mallampati score is IV. NECK: Supple. No JVD. LUNGS: Have a fair airflow with rhonchi. HEART: S1 and S2. ABDOMEN: Soft and nontender. No organomegaly. EXTREMITIES: No edema. NEUROLOGICAL: Awake and alert. Follows simple command. MEDICATIONS: He is on hydralazine 10 mg q. 6 hours p.r.n., Cozaar 50 mg daily, heparin weight-based protocol, insulin coverage, metoprolol tartrate 25 mg twice a day, Norvasc 10 mg daily, Protonix 40 mg daily. LABORATORY DATA: Shows hemoglobin 12.5, hematocrit 38.7, WBC 10.2, platelet is 275. PTT is 56. Blood sugar 178. Anticardiolipin antibodies are negative. Influenza A and B is negative. Nasal MRSA is nondetected. Has a pelvic ultrasound done, which was veins are not visualized. There is no DVT. IMPRESSION AND PLAN: Pulmonary embolism, uncontrolled hypertension, cardiomyopathy, pulmonary hypertension, diastolic dysfunction, may have a sleep apnea syndrome. I agreed with the present treatment. We will increase angiotensin II receptor blockers. Continue beta-karin. Pulmonary vasodilator. Gastric prophylaxis. Follow up labs the morning. Thank you and we will follow with you. Garfield Blair MD
[2017-06-08] MEDS: Heparin 25,000units in 1/2NS /250 ML BAG IV PRN (04:52)
[2017-06-08] MEDS: Pantoprazole 40 mg EC Tab PO SCH (06:34)
[2017-06-08 07:44] LABS: BASO # 0.03 K/mm3 (0.0-2.0); BASO % 0.3 % (0.0-3.0); EOS # 0.3 (0.0-0.7); EOS % 3.2 % (1.5-5.0); GRAN # 5.98 (1.4-6.5); GRAN % 68.1 % (50.0-68.0); HEMOGLOBIN 12.5 g/dL (14.0-18.0); LYMPH # 1.8 (1.2-3.4); LYMPH % 20.3 % (22.0-35.0); MEAN CELL VOLUME 86.8 fl (80.0-105.0); MEAN CORPUSCULAR HGB CONC 32.3 g/dl (31.0-37.0); MEAN PLATELET VOLUME 9.6 fl (7.0-11.0); MONO # 0.7 (0.1-0.6); MONO % 8.1 % (1.0-6.0); RBC 4.46 10^6/uL (3.5-6.1); WHITE BLOOD COUNT 8.8 10^3/ul (4.5-11.0)
[2017-06-08 08:33] LABS: ALB/GLOB RATIO 1.2 (1.1-1.8); ALBUMIN 3.7 g/dL (3.0-4.8); ALT/SGPT 89 U/L (7-56); AST/SGOT 48 U/L (17-59); BLOOD UREA NITROGEN 19 mg/dL (7-21); CALCIUM 9.3 mg/dL (8.4-10.5); GFR AFRICAN-AMERICAN > 60; GFR NON-AFRICAN AMERICAN > 60
[2017-06-08] MEDS: Insulin Lispro (humaLOG) MEDIUM Coverage SC SCH ×2 (10:00→12:00)
--- NOTE | 2017-06-08 20:00 | PN ---
DATE: 06/08/2017 This is [facility] visit on the medical floor. For Dr. Shanks. CHIEF COMPLAINT AND HISTORY OF PRESENT ILLNESS: The patient is a 56-year-old male, seen lying awake in bed, in no acute distress, having suffered pulmonary embolism with IV heparin continuing. He will be transitioned to Eliquis in the near future, 10 mg b.i.d. for 7 days, and eventually dose decreased as indicated. He also was noted to have a significantly poor ejection fraction on echocardiogram, ejection fraction of 22% with pulmonary hypertension, diagnosed cardiomyopathy with the patient, denying any significant history for a cardiac condition in the past. He is otherwise in no acute distress, and after conversation with Dr. Rojas, we will ask Dr. Tyrel Cam, social media analyst, to evaluate the patient for his significant cardiac condition. PHYSICAL EXAMINATION VITAL SIGNS: Temperature 98.5, pulse 88, respirations 20, blood pressure 158/105 with a pulse ox of 100% on room air. Upon questioning, patient does report recent weight gain of approximately 10 pounds over the past few months; he is now at 197 pounds, and 5 feet 9 inches tall. HEENT: Unremarkable. NECK: Supple. HEART: Regular rate. LUNGS: Clear. ABDOMEN: Obese, soft, nontender. EXTREMITIES: No edema. SKIN: Warm and dry. NEUROLOGIC: Awake, alert, and oriented x 3. LABORATORY DATA: Patient's labs were done. White blood cell count of 8.8, hemoglobin 12.5, hematocrit of 38.7, platelet count of 279,000, with a chem metabolic panel completely within normal range except for the ALT of 89, non-fasting glucose of 128. His PTT was 55.6 today. His other tests included anticardiolipin, IgG, IgA, IgM testing, which was all within normal range, as was his beta2-GPI testing. Hepatitis A, B, C was also negative, as was influenza testing. ASSESSMENT: For this patient is that of unprovoked pulmonary embolism, uncontrolled hypertension, cardiomyopathy, pulmonary hypertension, obesity. PLAN: For this patient, after conversation with Dr. Shanks, is to continue his present medical regimen with heparin IV with his other medications, to continue with the workup in progress for hypercoagulable state with his poor ejection fraction to be evaluated by Dr. Cam, Cardiology, with adjustments in medications as indicated. The prognosis for this patient is guarded. We will monitor clinically and with labs. It should be noted that his hemoglobin A1c was 6.5 two days prior with his blood sugars borderline. As patient denies history of diabetes at this time, we will discontinue his insulin protocol, with continued fingerstick blood check, sugar testing, for now. This is a complex patient with a comprehensive medically necessary and appropriate visit carried out in excess of 25 minutes of face to face time with the patient discussing his new finding of his compromised ejection fraction, pulmonary hypertension, with Dr. Rojas contacted regarding choice per social media analyst to evaluate the patient, in excess of 25 minutes of time with this patient. Adams Moseley MD
--- NOTE | 2017-06-09 01:51 | PN ---
DATE: PULMONARY PROGRESS NOTE REFERRING PHYSICIAN: Ellie Rojas MD SUBJECTIVE: He is lying in the bed, head at 45 degrees. Night was unremarkable. No headache, no rhinitis. Admit to snoring at nighttime, daytime sleepy. No nausea, no vomiting, no diarrhea. No leg pain or leg swelling. OBJECTIVE: GENERAL: In no acute distress. VITAL SIGNS: Temperature is 98, heart rate is 89, respiratory rate is 18, blood pressure is 142/105, pulse ox 99% on nasal cannula. HEENT: Moist mucous membrane. Crowded airway. Mallampati score is 4. NECK: Supple. No JVD. LUNGS: Have a fair airflow with rhonchi. HEART: S1 and S2. ABDOMEN: Soft and nontender. No organomegaly. EXTREMITIES: No edema. NEUROLOGICAL: Awake and alert. Follows simple command. MEDICATIONS: He is on hydralazine 10 mg q. 6 hours p.r.n., Cozaar 100 mg daily, Eliquis 10 mg twice a day. Added metoprolol tartrate 25 mg twice a day, Norvasc 10 mg daily, Protonix 40 mg daily. LABORATORY DATA: Shows hemoglobin 12.5, hematocrit 38.7, WBC 8.8, platelet count is 279. PTT today is 56. Sodium 138, potassium 3.9, chloride 103, bicarbonate is 20, BUN 19, creatinine 1.2, glucose 128, calcium 9.3, AST 48, ALT 89, alk phos is 89. Albumin is 3.7. IMPRESSION AND PLAN: Pulmonary embolism, uncontrolled hypertension, cardiomyopathy, pulmonary hypertension, diastolic cardiac dysfunction. Pulmonary point of view, doing okay. Case discussed with Dr. Rojas in detail. Agree with discontinuing heparin and placing on Eliquis. We will increase beta-karin. Follow blood pressure closely. Need outpatient attended sleep study. Thank you and we will follow with you. Garfield Blair MD
[2017-06-09] MEDS: Pantoprazole 40 mg EC Tab PO SCH (05:08)
[2017-06-09 07:24] LABS: BASO # 0.03 K/mm3 (0.0-2.0); BASO % 0.3 % (0.0-3.0); EOS # 0.3 (0.0-0.7); EOS % 3.7 % (1.5-5.0); GRAN # 6.36 (1.4-6.5); GRAN % 71.1 % (50.0-68.0); HEMOGLOBIN 12.8 g/dL (14.0-18.0); LYMPH # 1.6 (1.2-3.4); MEAN CELL VOLUME 86.8 fl (80.0-105.0); MEAN CORPUSCULAR HEMOGLOBIN 28.3 pg (25.0-35.0); MEAN CORPUSCULAR HGB CONC 32.6 g/dl (31.0-37.0); MEAN PLATELET VOLUME 9.5 fl (7.0-11.0); MONO # 0.6 (0.1-0.6); MONO % 6.9 % (1.0-6.0); RBC 4.53 10^6/uL (3.5-6.1)
[2017-06-09 07:43] LABS: ALB/GLOB RATIO 1.2 (1.1-1.8); ALBUMIN 3.8 g/dL (3.0-4.8); ALT/SGPT 86 U/L (7-56); AST/SGOT 49 U/L (17-59); BLOOD UREA NITROGEN 23 mg/dL (7-21); CALCIUM 9.9 mg/dL (8.4-10.5); GFR AFRICAN-AMERICAN > 60; GFR NON-AFRICAN AMERICAN > 60
--- NOTE | 2017-06-09 13:16 | CON ---
DATE: 06/09/2017 HISTORY: The patient is a 56-year-old male who presents with dyspnea and cough. He was found to have a pulmonary embolism on CT scan. The patient was started on Eliquis. The patient's past medical history is free of cardiac disease. No hypertension, no diabetes mellitus. No previous myocardial infarctions. SOCIAL HISTORY: The patient smokes on weekends. His alcohol intake is also restricted to weekends. REVIEW OF SYSTEMS: A 14-point review of systems was reviewed in detail. No angina, no edema in the lower extremities. No history of peptic ulcer disease. No bleeding history. The patient has a strong family history of CAD with a father with stents and other close relatives with coronary artery disease. PHYSICAL EXAMINATION VITAL SIGNS: Blood pressure is 156/100, the heart rate is in the 90s. NECK: Negative JVD. LUNGS: Without rales. HEART: Reveals S1, S2. EXTREMITIES: Without edema. EKG, normal sinus rhythm with left anterior hemiblock with nonspecific ST-T changes. LABORATORY DATA: The glucose is 135, hemoglobin is 12.8, troponin is 0.07. The echocardiogram reveals an ejection fraction of 23% with moderate pulmonary hypertension. IMPRESSION 1. Acute pulmonary embolism. 2. [id number] cardiomyopathy, unexplained 3. High probability for coronary artery disease. 4. Hypertension. 5. Borderline diabetes mellitus. Given these findings, I have discussed the results of his echo with the patient in detail. I have gone through the etiologies of cardiomyopathy with him. Given his high probability for CAD, I have discussed the various options for diagnosis and treatment. The patient is agreeable to cardiac catheterization. We will begin aspirin and Plavix today. We will hold the Eliquis and give one dose of Lovenox. The patient is scheduled for cardiac catheterization in the morning. Tyrel Cam MD
--- NOTE | 2017-06-09 14:05 | US ---
HISTORY: Abnormal liver function tests COMPARISON: None. TECHNIQUE: Sonographic evaluation of the abdomen. FINDINGS: LIVER: Measures 15.9 cm. There is diffuse increased echogenicity of the liver parenchyma. No mass. No intrahepatic bile duct dilatation. GALLBLADDER: There are no gallstones, wall thickening or pericholecystic fluid. The sonographic Soto's sign is negative. COMMON BILE DUCT: Measures 2.4 mm. No stones. No dilatation. PANCREAS: Unremarkable as visualized. No mass. No ductal dilatation. RIGHT KIDNEY: Measures 10.4cm. Normal echogenicity. No calculus, mass, or hydronephrosis. LEFT KIDNEY: Measures 12.3cm. Normal echogenicity. No calculus, mass, or hydronephrosis. There is a 3.8 x 2.6 x 3.5 cm cyst in the upper pole. SPLEEN: Normal in size and contour. No mass. AORTA: No aneurysmal dilatation. IVC: Unremarkable. OTHER FINDINGS: There is trace ascites. IMPRESSION: Diffuse increased echogenicity in the liver may reflect hepatic steatosis however parenchymal infectious/ inflammatory etiologies cannot be entirely excluded. Clinical and laboratory correlation is advised. 3.8 cm simple cyst in the upper pole of the left kidney.
[2017-06-09] MEDS ORDERED: Enoxaparin 100 mg Syringe SC ONE (15:00)
--- NOTE | 2017-06-09 15:55 | PN ---
DATE: 06/09/2017 This is Mr. Villegas' hospital visit on the medical floor. For Dr. Shanks. SUBJECTIVE: The patient is a 56-year-old male, seen sitting up in bed and suffered with pulmonary embolism with IV heparin discontinued yesterday as per Dr. Rojas with Dr. Shanks beginning Eliquis 10 mg b.i.d. However, the patient was evaluated by Dr. Tyrel Cam for his significantly poor ejection fraction on recent echocardiogram and for pulmonary hypertension with cardiomyopathy with plans for a catheterization tomorrow with the Eliquis being stopped with his heparin having been discontinued. He was given a dose of Lovenox 90 mg one time along with Plavix 300 mg stat with Plavix 75 mg to be continued as per Dr. Tyrel Cam, with again the Eliquis being on hold and heparin having been discontinued. The patient is otherwise without complaint for his planned testing tomorrow as per Dr. Tyrel Cam; possibly to be held off if necessary. Also, an ultrasound of the abdomen was ordered by Dr. Rojas, this will be evaluated. OBJECTIVE: VITAL SIGNS: Temperature is 97.9, pulse 90, respirations 18, blood pressure 156/100 to be repeated. The patient did have a pelvic ultrasound done on 06/06, which was read as visualized iliac veins are patent bilaterally, internal iliac veins are not visualized. With the ultrasound of the abdomen to be done. ASSESSMENT: Pulmonary embolism, hypertension, cardiomyopathy, pulmonary hypertension, poor ejection fraction, and obesity. PLAN: After conversation with Dr. Shanks is to continue workup as per Dr. Tyrel Cam with further testing as indicated with adjusting of his anticoagulation medications as listed above with his hypercoagulable profile ordered for and still pending with results to be evaluated upon return. The prognosis for this patient is guarded. This is a complex patient with a comprehensive medically necessary appropriate visit carried out in excess of 25 minutes face to face time with the recommendations as listed above, discussed with the patient. Adams Moseley MD
[2017-06-09 21:49] LABS: THROMBIN CLOTTING TIME 32 sec (13-19)
[2017-06-10 00:17] VITALS: O2SAT 98
--- NOTE | 2017-06-10 01:42 | PN ---
PULMONARY PROGRESS NOTE DATE: 06/09/2017 SUBJECTIVE: He is lying in the bed at 45 degrees. Night was unremarkable, seen by Cardiology. No nausea, no vomiting. No diarrhea, leg pain or leg swelling. OBJECTIVE: GENERAL: In no acute distress. VITAL SIGNS: Temperature is 98, heart rate is 84, respiratory rate is 20, blood pressure 153/97, pulse ox 97% on room air. HEENT: Moist mucous membrane. Crowded airway. Mallampati score is 4. NECK: Supple. No JVD. LUNGS: Has a fair airflow with rhonchi. HEART: S1, S2. ABDOMEN: Soft, nontender. No hepatomegaly. EXTREMITIES: No edema. NEUROLOGIC: Awake, alert, follows simple command. MEDICATIONS: He is on hydralazine 10 mg q. 6 hours p.r.n., aspirin 81 mg daily, Cozaar 100 mg daily, Eliquis 10 mg twice a day, metoprolol tartrate 50 mg twice a day, Norvasc 10 mg daily, Plavix 75 mg daily. LABORATORY DATA: Shows hemoglobin 12.8, hematocrit 39.3, WBC 9.0, platelet is 283. PTT on yesterday 56. Sodium 138, potassium 4.2, chloride 103, bicarbonate 24, BUN 23, creatinine 1.1, glucose 155, calcium 9.9, AST 49, ALT 86, alk phos is 91. Albumin is 3.8. IMPRESSION AND PLAN: Pulmonary embolism, uncontrolled hypertension, cardiomyopathy, pulmonary hypertension, cardiac diastolic dysfunction, may have sleep apnea syndrome. Seen by Cardiology, scheduled for cardiac workup tomorrow. Pulmonary point of view, he is doing okay. Upon discharge, as outpatient needs attended sleep study. Recommended weight loss. He also needs a close cardiopulmonary monitoring. Thank you, and we will follow with you. Garfield Blair MD
[2017-06-10 07:11] LABS: BASO # 0.03 K/mm3 (0.0-2.0); BASO % 0.3 % (0.0-3.0); EOS # 0.3 (0.0-0.7); EOS % 3.8 % (1.5-5.0); GRAN # 6.06 (1.4-6.5); GRAN % 67.5 % (50.0-68.0); HEMOGLOBIN 13.1 g/dL (14.0-18.0); LYMPH # 1.9 (1.2-3.4); LYMPH % 20.8 % (22.0-35.0); MEAN CELL VOLUME 87.4 fl (80.0-105.0); MEAN CORPUSCULAR HEMOGLOBIN 28.4 pg (25.0-35.0); MEAN CORPUSCULAR HGB CONC 32.4 g/dl (31.0-37.0); MEAN PLATELET VOLUME 9.5 fl (7.0-11.0); MONO # 0.7 (0.1-0.6); MONO % 7.6 % (1.0-6.0); RBC 4.62 10^6/uL (3.5-6.1)
[2017-06-10] MEDS ORDERED: Midazolam 2 MG/2 ML VIAL ONE ×3 (07:18→09:33)
[2017-06-10] MEDS ORDERED: Lidocaine 2% Inj (20ml) ONE (07:18)
[2017-06-10] MEDS ORDERED: HEPARIN SODIUM/NS 2,000 ML IV ONE (07:18)
[2017-06-10] MEDS ORDERED: Iodixanol 320 MG/ML 200 ML BOTTLE IV ONE (07:18)
[2017-06-10 07:22] LABS: INR 1.32 (0.93-1.08); PROTHROMBIN TIME 15.3 SECONDS (9.4-12.5)
[2017-06-10 07:24] LABS: ALB/GLOB RATIO 1.2 (1.1-1.8); ALBUMIN 3.9 g/dL (3.0-4.8); ALT/SGPT 84 U/L (7-56); AST/SGOT 47 U/L (17-59); BLOOD UREA NITROGEN 22 mg/dL (7-21); CALCIUM 10.2 mg/dL (8.4-10.5); GFR AFRICAN-AMERICAN > 60; GFR NON-AFRICAN AMERICAN > 60
--- NOTE | 2017-06-10 07:43 | HP ---
The patient is a 56-year-old male. CHIEF COMPLAINT: Chest pain, shortness of breath. HISTORY OF PRESENT ILLNESS: a 56-year-old male with history of smoking, came to the emergency department complaining of shortness of breath and chest pain. Patient reports he has been experiencing minimally productive cough, whitish sputum for the past 3 days and developed shortness of breath yesterday, which worsened at night. Patient also reports occasional association with chest discomfort. Patient denies any leg pain, nausea, vomiting, diarrhea. No back pain, no neck pain, no headache, no dizziness, no hematuria, no hematochezia, no rash on the skin. According to patient, he traveled to [place], [address], couple of weeks ago.. PAST MEDICAL HISTORY: Not significant. FAMILY HISTORY: Father and mother, noncontributory. ALLERGIES: PATIENT IS NOT ALLERGIC WITH ANY MEDICATIONS. REVIEW OF SYSTEMS: Patient is seen and examined in the unit early in the morning. According to him, cough is better, shortness of breath is better. Sputum production is better. Chest pain is better. No abdominal pain. No diarrhea, nausea or vomiting. No dysuria. No frequency. No hematuria. No urinary output changes. No back pain. No neck pain. No headache or dizziness. PHYSICAL EXAMINATION: VITAL SIGNS: Temperature 97.6, pulse of 113, respiratory rate 18, blood pressure was 208/140, today blood pressure is 147/101, pulse 101. HEENT: Head: Normocephalic, atraumatic. Eyes: PERRLA. Extraocular muscles intact. Conjunctivae clear. Nose patent. Mucous membranes are moist. NECK: Supple. No carotid bruits, JVD or thyromegaly. CHEST: Bilaterally symmetrical. HEART: S1 and S2 positive. LUNGS: Clear to auscultation. ABDOMEN: Soft. Bowel sounds present. No organomegaly. EXTREMITIES: No edema. No cyanosis. NEUROLOGIC: Patient is awake, alert, moving all four extremities. No focal deficit. LABORATORY DATA: White blood cells 11.2, hemoglobin 13.8, hematocrit 40.7, platelets 248. Sodium 140, potassium 4.4, BUN noted creatinine 1.1 and glucose 139. Bilirubin 1.4, ALT 97. ASSESSMENT AND PLAN: a 56-year-old male with leukocytosis, anemia, hyperglycemia, abnormal liver function test. Blood screening negative. Hepatitis and flu is negative, came with chest pain and shortness of breath, has pulmonary emboli. Hematology consult requested, to work on coagulopathy. Patient has history of tobacco abuse. Maybe he is provoked with the flight of [place]. Hypercoagulability workup ordered, on heparin drip. Continue that on heparin drip. May transition to NOAC in couple of days, seen by Dr. Pina, crm marketing analyst. Pelvic ultrasound is reviewed by me. No visualized iliac veins are patent bilaterally. The internal iliac veins are not visualized. Lower extremity ultrasound is done, and as per Dr. Tyrel Hollis, no sonographic evidence of deep vein thrombosis in the visualized segment of the both lower extremities. CAT scan of the chest was reviewed by me. Pulmonary consult called with Dr. Blair and Oncology with Dr. Shanks. Patient is getting hydralazine, losartan for hypertension. He is on heparin drip, getting amlodipine and metoprolol also, Protonix for gastrointestinal prophylaxis. We will follow up. Ellie Rojas MD DENISE
--- NOTE | 2017-06-10 09:58 | PN ---
DATE: 06/08/2017 SUBJECTIVE: The patient is a 56-year-old male. The patient was seen and examined on the bedside, looking comfortable. No nausea, vomiting or diarrhea. No hematuria or hematochezia. No swelling of the leg. No chest pain, no palpitation. No headache or dizziness. PHYSICAL EXAMINATION VITAL SIGNS: Temperature 98.5, pulse 96, blood pressure 158/105, respiratory rate 20. HEENT: Head: Normocephalic, atraumatic. Eyes: PERRLA. Extraocular muscles intact. Conjunctivae clear. Nose: Patent. Mucous membranes moist. NECK: Supple. No carotid bruits. No JVD or thyromegaly. CHEST: Bilaterally symmetrical. HEART: S1 and S2 positive. LUNGS: Clear to auscultation. ABDOMEN: Soft. Bowel sounds present. No organomegaly. EXTREMITIES: No edema. No cyanosis. NEUROLOGIC: The patient is awake and alert. Moving all 4 extremities. No focal deficits. MEDICATIONS: Hydralazine, Cozaar, heparin, Lopressor, Norvasc, Protonix. LABORATORY DATA: White blood cell is 6.8, hemoglobin 12.5, hematocrit 38.7, platelets 279. Sodium 138, potassium 3.9, BUN 19, creatinine 1.2, glucose 206, AST 89. ASSESSMENT AND PLAN: Mr. Alex Villegas is a 56-year-old male with hyperglycemia, abnormal liver function test. The patient's leukocytosis improved, anemia, D-dimer 248. Drug screening is negative. Hepatitis profile is negative. Influenza type A and B are negative. Came with chest pain, shortness of breath, pulmonary emboli, uncontrolled hypertension, cardiomyopathy, pulmonary hypertension, diastolic dysfunction, sleep apnea syndrome, Angiotensin II receptor karin. Continue beta-karin. Pulmonary consult called. Gastric and deep venous thrombosis prophylaxis. We will start some blood thinner. Repeat labs. Out of bed. Physical therapy. We will follow. Ellie Rojas MD MTDD
[2017-06-10] MEDS ORDERED: Sodium Chloride 0.9% 1,000 ML IV SCH (10:00)
--- NOTE | 2017-06-10 10:40 | PN ---
DATE: 06/09/2017 SUBJECTIVE: The patient is a 56-year-old male. Patient is seen and examined at the bedside, anxious about his heart condition, tried to comfort him. All questions answered. No nausea, vomiting, diarrhea. No hematuria, hematochezia. No swelling of the leg. No chest pain. No palpitation. No shortness of breath. PHYSICAL EXAMINATION: VITAL SIGNS: Temperature 97.8, pulse 80, blood pressure 161/109, respiratory rate 20. HEENT: Head: Normocephalic, atraumatic. Eyes: PERRLA. Extraocular muscles intact. Conjunctivae clear. Nose patent. Mucous membranes moist. NECK: Supple. No carotid bruit, JVD, or thyromegaly. CHEST: Bilaterally symmetrical. HEART: S1 and S2 positive. LUNGS: Clear to auscultation. ABDOMEN: Soft. Bowel sounds are present. No organomegaly. EXTREMITIES: No edema. No cyanosis. NEUROLOGIC: Patient is awake and alert. Moving all 4 extremities. No focal deficits. MEDICATIONS: Hydralazine, aspirin, Cozaar, Eliquis, Lopressor, Lovenox, amlodipine and Plavix. LABORATORY DATA: White blood cell 9.0, hemoglobin 12.8, hematocrit 39.3, platelets 283. Sodium 138, potassium 4.2, BUN 23, creatinine 1.1, glucose 162. AST 86. ASSESSMENT AND PLAN: a 56-year-old male with anemia, abnormal liver function test, sent for ultrasound of the liver, hyperglycemia. According to Dr. French, mainly diffuse increased echogenicity in the liver may reflect hepatic steatosis, however inflammatory etiologies cannot be entirely excluded clinically and lab correlation is advised. A 3.8 cm cyst in the upper pole of the left kidney. Patient has pulmonary embolism, uncontrolled hypertension, cardiomyopathy, pulmonary hypertension, diastolic cardiac dysfunction . Actually, we discontinued heparin, started patient on Eliquis. Increased beta-blockers, but later on, patient was seen by Dr. Tyrel Cam. According to him, patient has high probability of coronary artery disease, because cardiomyopathy is unexplained as per Dr. Tyrel aCm. Length of time discussion done with Dr. Blair and patient's all questions answered. Patient is going for catheterization tomorrow. Dr. Sarah started aspirin and Plavix, and hold Eliquis and one dose of Lovenox in the evening . We will follow up. Ellie Rojas MD [facility] # [id number] [facility]
[2017-06-10 12:29] VITALS: TEMP 97.9
--- NOTE | 2017-06-10 14:36 | CP.PCM.DIS ---
Provider - Provider Date of Admission: 06/06/17 00:09 Attending physician: Ellie Rojas MD Primary care physician: NO PRIMARY CARE PROVIDER Consults: Pulmo - Dr. Blair Associate Manager [employer] - Dr. Shanks Cardio - Dr. Cam Time Spent in preparation of Discharge (in minutes): 40 Diagnosis - Discharge Diagnosis (1) Smoker Status: Acute (2) HTN (hypertension) Status: Acute (3) Pulmonary emboli Status: Acute (4) Anemia Status: Acute (5) Hyperglycemia Status: Acute (6) Newly diagnosed diabetes Status: Acute Hospital Course - Lab Results Lab Results: Micro Results 06/06/17 02:29 Nose MRSA Culture (Admit) - Final MRSA NOT DETECTED Most Recent Lab Values WBC 9.0 10^3/ul (4.5-11.0) 06/10/17 06:30 RBC 4.62 10^6/uL (3.5-6.1) 06/10/17 06:30 Hgb 13.1 g/dL (14.0-18.0) L 06/10/17 06:30 Hct 40.4 % (42.0-52.0) L 06/10/17 06:30 MCV 87.4 fl (80.0-105.0) 06/10/17 06:30 MCH 28.4 pg (25.0-35.0) 06/10/17 06:30 MCHC 32.4 g/dl (31.0-37.0) 06/10/17 06:30 RDW 15.0 % (11.5-14.5) H 06/10/17 06:30 Plt Count 307 10^3/uL (120.0-450.0) 06/10/17 06:30 MPV 9.5 fl (7.0-11.0) 06/10/17 06:30 Gran % 67.5 % (50.0-68.0) 06/10/17 06:30 Lymph % (Auto) 20.8 % (22.0-35.0) L 06/10/17 06:30 [place] % (Auto) 7.6 % (1.0-6.0) H 06/10/17 06:30 Eos % (Auto) 3.8 % (1.5-5.0) 06/10/17 06:30 Baso % (Auto) 0.3 % (0.0-3.0) 06/10/17 06:30 Gran # 6.06 (1.4-6.5) 06/10/17 06:30 Lymph # (Auto) 1.9 (1.2-3.4) 06/10/17 06:30 [place] # (Auto) 0.7 (0.1-0.6) H 06/10/17 06:30 Eos # (Auto) 0.3 (0.0-0.7) 06/10/17 06:30 Baso # (Auto) 0.03 K/mm3 (0.0-2.0) 06/10/17 06:30 PT 15.3 SECONDS (9.4-12.5) H 06/10/17 06:30 INR 1.32 (0.93-1.08) H 06/10/17 06:30 APTT 55.6 Seconds (25.1-36.5) H 06/08/17 07:00 Thrombin Time 32 sec (13-19) H 06/06/17 12:20 Fibrinogen 592 mg/dl (200-393) H 06/06/17 12:10 Fibrin Degrad Products <10 ug/ml (< 10 ug/mL) 06/06/17 12:10 D-Dimer, Quantitative 248 ng/mL (0-243) H 06/05/17 21:00 Lupus Anticoagulant see note 06/06/17 12:20 LA PTT Screen 57 sec (<=40) H 06/06/17 12:20 LA dRVVT Screen Ratio 35 sec (<=45) 06/06/17 12:10 dRVVT Mixing Study 34 sec (<=45) 06/06/17 12:20 dRVVT Mix Interpret Not indicated 06/06/17 12:20 Hexagonal Phase Confirm Weak positive (Negative) H 06/06/17 12:20 Protein C Antigen 89 % (70-140) 06/06/17 12:10 Protein S Activity 78 % (70-150) 06/06/17 12:10 Sodium 139 mmol/L (132-148) 06/10/17 06:30 Potassium 4.5 mmol/L (3.6-5.0) 06/10/17 06:30 Chloride 103 mmol/L (98-107) 06/10/17 06:30 Carbon Dioxide 26 mmol/L (21-33) 06/10/17 06:30 Anion Gap 14 (10-20) 06/10/17 06:30 BUN 22 mg/dL (7-21) H 06/10/17 06:30 Creatinine 1.2 mg/dl (0.8-1.5) 06/10/17 06:30 Est GFR ( Amer) > 60 06/10/17 06:30 Est GFR (Non-Af Amer) > 60 06/10/17 06:30 POC Glucose (mg/dL) 128 mg/dL (65-110) H 06/10/17 07:14 Random Glucose 138 mg/dL (70-110) H 06/10/17 06:30 Hemoglobin A1c 6.5 % (4.2-6.5) 06/06/17 06:40 Calcium 10.2 mg/dL (8.4-10.5) 06/10/17 06:30 Total Bilirubin 0.7 mg/dL (0.2-1.3) 06/10/17 06:30 AST 47 U/L (17-59) 06/10/17 06:30 ALT 84 U/L (7-56) H 06/10/17 06:30 Alkaline Phosphatase 97 U/L (38-126) 06/10/17 06:30 Lactate Dehydrogenase 559 U/L (333-699) 06/05/17 21:00 Total Creatine Kinase 179 U/L (35-230) 06/05/17 21:00 Troponin I 0.07 ng/mL 06/06/17 12:10 NT-Pro-B Natriuret Pep 5480 pg/mL (0-450) H 06/06/17 06:30 Total Protein 7.2 g/dL (5.8-8.3) 06/10/17 06:30 Albumin 3.9 g/dL (3.0-4.8) 06/10/17 06:30 Globulin 3.3 gm/dL 06/10/17 06:30 Albumin/Globulin Ratio 1.2 (1.1-1.8) 06/10/17 06:30 Triglycerides 109 mg/dL (35-160) 06/06/17 06:40 Cholesterol 145 mg/dL (130-200) 06/06/17 06:40 LDL Cholesterol Direct 91 mg/dL (0-129) 06/06/17 06:40 HDL Cholesterol 35 mg/dL (29-60) 06/06/17 06:40 Lipase 216 U/L (23-300) 06/06/17 06:40 Homocysteine 8.7 umol/L ( <11.4) 06/06/17 12:10 Urine Opiates Screen Negative (NEGATIVE) 06/06/17 08:18 Urine Methadone Screen Negative (NEGATIVE) 06/06/17 08:18 Ur Barbiturates Screen Negative (NEGATIVE) 06/06/17 08:18 Ur Phencyclidine Scrn Negative (NEGATIVE) 06/06/17 08:18 Ur Amphetamines Screen Negative (NEGATIVE) 06/06/17 08:18 U Benzodiazepines Scrn Negative (NEGATIVE) 06/06/17 08:18 U Oth Cocaine Metabols Negative (NEGATIVE) 06/06/17 08:18 U Cannabinoids Screen Negative (NEGATIVE) 06/06/17 08:18 Beta-2-GPI IgG Ab <9 SGU (<=20) 06/06/17 12:20 Beta-2-GPI IgA Ab <9 BHUMI (<=20) 06/06/17 12:20 Beta-2-GPI IgM Ab <9 SMU (<=20) 06/06/17 12:20 Anti-Cardiolipin IgG Ab <14 GPL (<=14) 06/06/17 12:10 Anti-Cardiolipin IgA Ab <11 APL (<=11) 06/06/17 12:10 Anti-Cardiolipin IgM Ab <12 MPL (<=12) 06/06/17 12:10 Hepatitis A IgM Ab Negative (NEGATIVE) 06/06/17 06:30 Hep Bs Antigen Negative (NEGATIVE) 06/06/17 06:30 Hep B Core IgM Ab Negative (NEGATIVE) 06/06/17 06:30 Hepatitis C Antibody Negative (NEGATIVE) 06/06/17 06:30 Influenza Typ A,B (EIA) Negative for flu a/b (NEGATIVE) 06/06/17 21:15 - Hospital Course Hospital Course: 56 yr male w/ history of heavy smoking seen in [facility] for shortness of breath and chest discomfort. Pt was found to have acute pulmonary emboli of R lower lobe on CT of chest. s/p IV heparin drip. Cardiac cath done. Diastolic cardiac dysfunction present. Eliquis on board. Sleep Apnea present. Pt cleared for discharge home with outpatient follow up in our office. Reviewed: pelvis ultrasound = limited study doppler BLE = NEGATIVE CT chest = R lower lobe pulmonary emboli, primarily involving segmental subsegmental branches, findings suspicious for mild acute pancreatitis involving pancreatic tail, bilateral pleural effusion, mild pulmonary vascular congestion?, small amount abdominal free fluis, cardiomegaly, adrenal lesion CXR = moderate cardiomegaly w/ mild vascular congestion ECHO = systolic function severely impaired, mod pulmonary hypertension ECG = ABNORMAL, ST, possible L atrial enlargement, L axis deviation, L ventricular hypertrophy w/ repolarization abnormality - Date & Time of H&P Date of H&P: 06/10/17 Time of H&P: 11:30 Discharge Exam - Head Exam Head Exam: ATRAUMATIC, NORMAL INSPECTION, NORMOCEPHALIC - Eye Exam Eye Exam: EOMI, Normal appearance, PERRL Pupil Exam: NORMAL ACCOMODATION, PERRL - ENT Exam ENT Exam: Mucous Membranes Moist - Neck Exam Neck exam: Full Rom - Respiratory Exam Respiratory Exam: Clear to PA & Lateral, NORMAL BREATHING PATTERN, UNREMARKABLE - Cardiovascular Exam Cardiovascular Exam: +S1, +S2 - GI/Abdominal Exam GI & Abdominal Exam: Normal Bowel Sounds - Extremities Exam Extremities exam: full ROM, normal inspection Additional comments: R groin dressing C/D/I. no hematoma noted. - Neurological Exam Neurological exam: Alert, CN II-XII Intact, Oriented x3 - Psychiatric Exam Psychiatric exam: Normal Affect, Normal Mood - Skin Skin Exam: Dry, Intact, Normal Color, Warm Discharge Plan - Follow Up Plan Condition: GUARDED Disposition: HOME/ ROUTINE Instructions: Pulmonary Embolism (DC), Pulmonary Embolism (GEN), Hypertension ( DC), Hypertension (GEN) Referrals: PCP,NO [Primary Care Provider] -
[2017-06-10 15:29] VITALS: RESP 18
[2017-06-10 15:30] VITALS: PULSE 86
[2017-06-10 16:41] VITALS: BP 153/89
--- NOTE | 2017-06-10 21:55 | CARDCATH ---
HISTORY: The patient is a 56-year-old male who presents with an acute pulmonary embolism. He was found to have a dilated cardiomyopathy as well as has cardiac risk factors including multiple family members with coronary disease as well as myocardial infarction. Because of this, cardiac catheterization was recommended. PROCEDURE: Left heart catheterization with coronary arteriography, left ventriculogram, supra-aortic valvular injection were performed. There were no complications. The right femoral artery was cannulated with 6-[place]ogol[place] sheath. I performed moderate sedation which included the presence of an independent trained observer that assisted in monitoring the patient's level of consciousness and physiologic status. After administration of Versed and fentanyl, my intra-service time was 15 minutes. The findings on catheterization revealed a left ventricle that was globally hypokinetic and dilated. Estimated ejection fraction was 25%. Supra-aortic valvular injection revealed no aortic insufficiency with a dilated ascending aorta. His coronary anatomy revealed aright dominant circulation. The RCA revealed diffuse atherosclerosis throughout the coronary tree with 30 to 40% stenosis in the proximal portion of the RCA. The RCA was a right dominant circulation. The left main artery was unremarkable. The LAD and diagonal vessels revealed diffuse atherosclerosis throughout its course. There is 50% stenoses in the midportion of the diagonal vessel noted. There is a 30 to 40% stenosis in the distal portion of the LAD. The circumflex artery and obtuse marginal branches revealed diffuse atherosclerosis without critical lesions. Angio-Seal was used to close the femoral artery site. The patient tolerated the procedure well. In summary, the procedure revealed dilated cardiomyopathy with an EF of 25%. Diffuse coronary atherosclerosis throughout all three coronary arteries. There is 30 to 40% stenoses in the proximal RCA, there is 50% stenosis in the midportion of the diagonal vessel, with 30 to 40% stenosis in the mid to distal LAD. No aortic insufficiency was noted. Given these findings, the patient will be treated medically. We will need to place the patient on aspirin, Eliquis for his pulmonary embolism. KARY inhibitor for afterload reduction, beta karin, as well as Lipitor as part of his cardiac risk reduction program. I have discussed with the patient about the need to stop alcohol use and re-measure his LV function in 6 months. Tyrel Cam MD [facility] # [phone]
--- NOTE | 2017-06-10 23:23 | PN ---
DATE: 06/10/2017 PULMONARY PROGRESS NOTE REFERRING PHYSICIAN: Ellie Rojas MD. SUBJECTIVE: He is lying in the bed, head at 45 degrees. Night was unremarkable, status post cardiac workup done. No nausea, no vomiting. No diarrhea, leg pain or leg swelling. OBJECTIVE: GENERAL: In no acute distress. VITAL SIGNS: Temperature is 98, heart rate is 86, respiratory rate is 18, blood pressure 153/89, pulse ox 98% on 2 liters nasal cannula. HEENT: Moist mucous membrane. Crowded airway. Mallampati score is 4. NECK: Supple. No JVD. LUNGS: Has a fair airflow with rhonchi. HEART: S1, S2. ABDOMEN: Soft, nontender. No organomegaly. EXTREMITIES: No edema. NEUROLOGIC: Awake, alert, follows simple command. MEDICATIONS: Reviewed. No new change in medication reported. LABORATORY DATA: Shows hemoglobin 13.1, hematocrit 40.4, WBC 9.0, platelet count is 307. INR 1.32. Sodium 139, potassium 4.5, chloride 103, bicarbonate 26, BUN 22, creatinine 1.2, glucose 138, calcium 10.2, AST 47, ALT 84, alkaline phosphatase is 97. Albumin is 3.9. Microbiology; MRSA nasal screen is negative. He has had a cardiac cath done, official report is pending, but verbally it was unremarkable. IMPRESSION AND PLAN: Pulmonary embolism, uncontrolled hypertension, cardiomyopathy, pulmonary hypertension, cardiac diastolic dysfunction, may have sleep apnea syndrome loud snoring, day-time sleepy and tired. The patient will be discharged on anticoagulation outpatient. Needs attended sleep study, sleep apnea precaution. Thank you, and we will follow with you. Garfield Balir MD
== END 2017-06-10 18:46 | disposition home or self-care (01) | DRG 176 ==
LOC: ED 20:44 → ERH 06-06 00:09 → CCU 06-06 01:56 → 3RSO 06-06 22:18 → 2RNO 06-10 10:04
PROVIDERS: ADMIT Internal Medicine; ATTEND Internal Medicine
PROC: 4A023N7 Measurement of Cardiac Sampling and Pressure, Left Heart, Percutaneous Approach (ICD-10-PCS; principal; 2017-06-10)
PROC: B211YZZ Fluoroscopy of Multiple Coronary Arteries using Other Contrast (ICD-10-PCS; 2017-06-10)
PROC: B215YZZ Fluoroscopy of Left Heart using Other Contrast (ICD-10-PCS; 2017-06-10)
DX: I26.99 Other pulmonary embolism without acute cor pulmonale (principal); I27.20 Pulmonary hypertension, unspecified; J90 Pleural effusion, not elsewhere classified; E11.65 Type 2 diabetes mellitus with hyperglycemia; I42.0 Dilated cardiomyopathy; D64.9 Anemia, unspecified; I10 Essential (primary) hypertension; I25.10 Atherosclerotic heart disease of native coronary artery without angina pectoris; F17.210 Nicotine dependence, cigarettes, uncomplicated; E66.9 Obesity, unspecified; Z68.29 Body mass index [BMI] 29.0-29.9, adult; G47.30 Sleep apnea, unspecified

== ENCOUNTER 2018-08-14 08:08 | Outpatient (CLI) | payer OTHER | END 2018-08-14 08:09 | disposition home or self-care (01) | LOC: CARDIO 08:08 ==